=== PATIENT | female | born 1990 | race Caucasian/White ===

== ENCOUNTER → 2016-04-25 | Outpatient (CLI) | payer OTHER ==
[~2016-04-25] MED LIST: GLC/500 PO; METF1TAB85 PO; MULT-513 PO; SULF800T23 PO; TRAM-453 PO; TRAZ50TA35 PO
--- NOTE | 2016-04-25 16:48 | DIAGNOSTIC IMAGING REPORT ---
L-SPINE MIN 4 VIEWS ROUTINE CLINICAL HISTORY: Lower back pain. COMPARISON: None FINDINGS: There is mild rightward curvature of the lumbar spine. Vertebral body heights are maintained. No fracture or suspicious lesion is present. There is mild disc space narrowing at L4-L5 and L5-S1. IMPRESSION: 1. No acute lumbar spine fracture or subluxation. 2. Mild disc space narrowing at L4-L5 and L5-S1. 3. Mild rightward curvature of the lumbar spine. Electronically signed by: Silverio Garcia M.D. 04/25/2016 4:46 PM Dictated Date/Time: 04/25/2016 4:43 PM
== END | disposition home or self-care (01) ==
LOC: C.RAD1850 16:05
PROVIDERS: ATTEND Nurse Practitioner Family
DX: M54.5 Low back pain (principal); M62.830 Muscle spasm of back

== ENCOUNTER → 2016-05-08 | Outpatient (CLI) | payer OTHER ==
[2016-05-08 18:17] LABS: PROLACTIN 2.69 ng/mL
[2016-05-08 18:18] LABS: INSULIN FASTING 79.7 mU/L (3-25)
== END | disposition home or self-care (01) ==
LOC: C.LAB 16:37
PROVIDERS: ATTEND Nurse Practitioner Family
DX: E28.2 Polycystic ovarian syndrome (principal); R10.32 Left lower quadrant pain; N91.2 Amenorrhea, unspecified

== ENCOUNTER → 2016-10-04 | Outpatient (CLI) | payer OTHER | END | disposition home or self-care (01) | LOC: C.LAB 16:59 | PROVIDERS: ATTEND Family Medicine | DX: L03.90 Cellulitis, unspecified (principal) ==

== ENCOUNTER 2016-10-09 17:40 | Emergency (ER) | payer OTHER ==
[~2016-10-09] VITALS: Ht 165.1 cm; Wt 108.2 kg
[~2016-10-09 17:40] MED LIST changes: -METF1TAB85 PO; -MULT-513 PO; -SULF800T23 PO; -TRAM-453 PO; -TRAZ50TA35 PO
[2016-10-09 17:53] VITALS: TEMP 37.1; Ht 165.1 cm; Wt 108.2 kg
[2016-10-09 19:35] LABS: URINE APPEARANCE CLEAR (CLEAR); URINE BILIRUBIN NEG (NEG); URINE COLOR YELLOW; URINE NITRITE NEG (NEG); URINE PH 6.5 (4.5-7.5); URINE SPECIFIC GRAVITY 1.013 (1.000-1.030); UROBILINOGEN NEG (NEG)
[2016-10-09 19:37] LABS: MANUAL MICROSCOPIC REQUIRED? NO; REVIEW REQ? NO
[2016-10-09] MEDS ORDERED: KETOROLAC TROMETHAMINE 30 MG/ML VIAL IV STA (19:59)
--- NOTE | 2016-10-09 20:26 | EMERGENCY ROOM VISIT NOTE ---
History First contact with patient: 18:40 Chief Complaint: ABDOMINAL PAIN Stated Complaint: LOWER ABD PAIN Nursing Triage Summary: Pt referred by PCP for urinary symptoms. Pt had urine culture, neg. Pt had pelvic exam today, tender with palpation. Hx of ovarian cysts, cyst removal. pt c/o bilateral lower quadrant pain, denies urinary symptoms, denies discharge or bleeding. "I'm just achey" History of Present Illness The patient is a 26 year old female who presents to the Emergency Room with complaints of lower abdominal discomfort that has been going on for approximately 2 weeks. The patient describes it as a dull ache. She has been taking ibuprofen for the pain with minimal relief. The patient has a history of ovarian cyst. She says that this feels similar to her previous cysts. She denies any vaginal discharge. She does complain of dyspareunia. The patient has a history of PCO asked. She has not had a menstrual cycle in over 3 years. She has had to undergo surgery for her ovarian cyst in 2009. She denies any other symptoms such as fever or chills. No nausea or vomiting. No changes in bowel movements. No dysuria, however she does complain of urinary frequency. No flank pain. She is sexually active with one partner. Review of Systems 10 system review performed and negative unless noted in HPI or below Past Medical/Surgical History Medical Problems: (1) Abdominal Pain, Unspecified Site (2) Ovarian Cyst Nec/Nos (3) Tobacco Use Disorder Family History Diabetes mellitus FH: cancer FH: gallbladder disease FH: heart disease FH: lung disease Hypertension Kidney disease Kidney stones Social History Smoking Status: Current Every Day Smoker Alcohol Use: occasionally Marital Status: in relationship Housing Status: lives with family Occupation Status: student Current/Historical Medications Scheduled Metformin Hcl (Glucophage), 500 MG PO TID Multivitamins/Minerals (Mvi With Minerals), 1 TAB PO DAILY Sulfa/Trimethoprim (Bactrim Ds 800MG/160MG), 1 TAB PO BID Tramadol Hcl (Ultram), 50 MG PO Q4H Scheduled PRN Trazodone Hcl (Trazodone), 50 MG PO HS PRN for Sleep Allergies Coded Allergies: No Known Allergies (Verified , 10/09/16) Physical Exam Vital Signs Date Time Temp Pulse Resp B/P (MAP) Pulse Ox O2 Delivery O2 Flow Rate FiO2 10/09/16 21:36 76 18 143/92 97 Room Air 7/5/17 19:36 78 18 125/82 99 Room Air 10/09/16 17:53 37.1 98 18 137/87 97 Room Air Physical Exam VITALS: Vitals are noted on the nurse's note and reviewed by myself. Vital signs stable. GENERAL: 26-year-old female, in no acute distress, nondiaphoretic, well- developed well-nourished. SKIN: The skin was without rashes, erythema, edema, or bruising. HEAD: Normocephalic atraumatic. NECK: No JVD. HEART: Regular rate and rhythm without murmurs gallops or rubs. LUNGS: Clear to auscultation bilaterally without wheezes, rales or rhonchi. No accessory muscle use. ABDOMEN: Positive bowel sounds x 4.Soft tenderness to palpation in the left lower quadrant and suprapubic region.. No guarding or rebound tenderness. : External genitalia free of any lesions. Vaginal mucosa intact. No significant discharge noted. There is some narrowing of the vaginal wall noted midway to the cervix. Cervix is pink in appearance. No lesions noted. The os is closed. Bimanual exam reveals no cervical tenderness. No palpable mass on the adnexa. MUSCULOSKELETAL: No muscle atrophy, erythema, or edema noted. Full range of motion in all extremities. No tenderness to palpation. Strength 5/5 throughout. NEURO: Patient was alert and oriented to person place and time. Normal sensation to touch. No focal neurological deficits. Medical Decision & Procedures ER Provider Diagnostic Interpretation: Patient: EYAD RODRIGUEZ Address1: [address] [place] [address] Rec: [id number] [id number] Zip: [place] [id number] Date: 1990 Sex: F Room/Bed: Ref Phy: Kylah Lopez SC: MIN Att Phy: Report #: [id number] Justa Phy: Kylah Lopez Test: PVC Admit Phy: Systems Planner: ABHIJIT Interpreting Phy: Silverio Garcia MD Diagnosis: LOWER ABD PAIN Ordering Phy: Randi Andino PA-C Service Date: 10/09/16 Admit Date: 10/09/16 MNE: [id number] CONF: DICTATED BY: Silverio Garcia MD]] CC: Kylah Lopez Daniel F., M.D. Urban, Angela P., PA-C Endcc: [~ rep ct add3]] PELVIC ULTRASOUND CLINICAL HISTORY: Suprapubic/left lower quadrant pain. COMPARISON STUDY: Pelvic ultrasound and CT of the abdomen and pelvis December 26, 2013. TECHNIQUE: Transabdominal and transvaginal sonography of the pelvis was performed. FINDINGS: The uterus measures 7.8 x 3 x 4.1 cm. Endometrium measures 1.2 cm in thickness. There are 3 hypoechoic uterine lesions, including a 1.2 cm lesion which projects over the endometrium of the uterine fundus. There are 2 smaller suspected uterine fibroids. The right ovary measures 4.2 x 2.9 x 3.2 cm. There is a 2.7 cm dominant follicle or cyst within the right ovary. The left ovary measures 2.4 x 2.2 x 2.1 cm. Color flow is identified within each ovary. There is slight deformity of the left ovary which may be postsurgical. There is no free fluid. IMPRESSION: 1. Three hypoechoic uterine lesions which favor fibroids, the largest of which is a 1.2 cm submucosal fundal fibroid. 2. 2.7 cm cyst or dominant follicle within the right ovary. Electronically signed by: Silverio Garcia M.D. 10/09/2016 9:51 PM Dictated Date/Time: 10/09/2016 9:47 PM The status of this report is Signed. Draft = Not yet reviewed or approved by Radiologist. Signed = Reviewed and approved by Radiologist. Laboratory Results Test 10/09/16 00:00 10/09/16 19:10 10/09/16 19:49 Urine Color YELLOW Urine Appearance CLEAR (CLEAR) Urine pH 6.5 (4.5-7.5) Urine Specific [place] 1.013 (1.000-1.030) Urine Protein NEG (NEG) Urine Glucose (UA) NEG (NEG) Urine Ketones NEG (NEG) Urine Occult Blood NEG (NEG) Urine Nitrite NEG (NEG) Urine Bilirubin NEG (NEG) Urine Urobilinogen NEG (NEG) Urine Leukocyte Esterase NEG (NEG) Date/Time Source Procedure Growth Status 10/09/16 00:00 Cervix Swab Trichomonas Preparation - Final Complete Medications Administered Medications (Trade) Dose Ordered Sig/Christy Route Start Time Stop Time Status Last Admin Dose Admin Ketorolac Tromethamine (Toradol Inj) 30 mg NOW STAT IV 10/09/16 19:59 10/09/16 20:02 DC 10/09/16 20:06 30 MG ED Course Patient was seen and examined saline lock was established Vital signs were reviewed. BP was slightly elevated. Blood pressure was mildly elevated. The patient was made aware of this. Pelvic exam was performed Patient was given 1 dose of Toradol 30 mg IV Pelvic ultrasound was performed and reviewed. The patient was reassessed and feeling better. We discussed the results of her workup. She voiced understanding. She was comfortable being discharged home. I reviewed discharge instructions the patient. They voiced understanding and had no further questions. Medical Decision Differential diagnosis: Ovarian mass, ovarian cysts, ovarian torsion, uterine fibroids, diverticulitis, diverticulosis, appendicitis, UTI, STD, PID, vaginal dryness Patient is a 26-year-old female that presents to the emergency department with complaints of lower abdominal discomfort and dyspareunia. Her exam revealed left lower quadrant and suprapubic pain. Her pelvic examination revealed some narrowing of the vaginal canal. Otherwise, no abnormal findings noted. The patient was nontoxic in appearance. She was afebrile. Her abdomen was soft. There are no signs of peritonitis. I did not suspect a GI source. A pelvic ultrasound revealed a right ovarian cyst in addition to uterine fibroids. This could explain her symptoms. The patient was given 1 dose of Toradol with good pain relief. She was comfortable being discharged home. 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 She also agreed to return to the emergency department with any new or worsening symptoms. This chart was completed in part utilizing [employer] Speech Voice Recognition software. Attempts were made to minimize the grammatical errors, random word insertions, pronoun errors and incomplete sentences. Any formal questions or concerns about the content, text or information contained within the body of this dictation should be directly addressed to the provider for clarification. Impression Primary Impression: Uterine fibroid Additional Impression: Ovarian cyst Departure Information Prescriptions Tramadol Hcl (ULTRAM) 50 Mg Tab 50 MG PO Q4H, #15 TAB PRN PAIN Prov: Randi Andino PA-C 10/09/16 Referrals Kylah Lopez. (PCP) Patient Instructions My [facility] Problem Qualifiers
--- NOTE | 2016-10-09 21:52 | DIAGNOSTIC IMAGING REPORT ---
PELVIC ULTRASOUND CLINICAL HISTORY: Suprapubic/left lower quadrant pain. COMPARISON STUDY: Pelvic ultrasound and CT of the abdomen and pelvis December 26, 2013. TECHNIQUE: Transabdominal and transvaginal sonography of the pelvis was performed. FINDINGS: The uterus measures 7.8 x 3 x 4.1 cm. Endometrium measures 1.2 cm in thickness. There are 3 hypoechoic uterine lesions, including a 1.2 cm lesion which projects over the endometrium of the uterine fundus. There are 2 smaller suspected uterine fibroids. The right ovary measures 4.2 x 2.9 x 3.2 cm. There is a 2.7 cm dominant follicle or cyst within the right ovary. The left ovary measures 2.4 x 2.2 x 2.1 cm. Color flow is identified within each ovary. There is slight deformity of the left ovary which may be postsurgical. There is no free fluid. IMPRESSION: 1. Three hypoechoic uterine lesions which favor fibroids, the largest of which is a 1.2 cm submucosal fundal fibroid. 2. 2.7 cm cyst or dominant follicle within the right ovary. Electronically signed by: Silverio Garcia M.D. 10/09/2016 9:51 PM Dictated Date/Time: 10/09/2016 9:47 PM
[2016-10-09] MEDS ORDERED: TRAM-453 PO (22:26)
[2016-10-09 22:41] VITALS: BP 115/96; PULSE 78; O2SAT 98
[2016-10-10] MEDS ORDERED: METF1TAB85 PO (15:21)
[2016-10-10] MEDS ORDERED: SULF800T23 PO (18:16)
[2016-10-10] MEDS ORDERED: TRAZ50TA35 PO (18:16)
[2016-10-10] MEDS ORDERED: MULT-513 PO (19:34)
[2016-10-12 00:44] LABS: CHLAMYDIA TRACH RNA*** NOT DETECTED (NOT DETECTED); GC (NEIS GONORRHOEAE)RNA** NOT DETECTED (NOT DETECTED)
[2016-10-15 12:29] LABS: HERPES SIMPLEX CULT SOURCE GENITAL-CERVIX; HERPES SIMPLEX VIRUS CULT NOT ISOLATED (NOT ISOLATED)
== END 2016-10-09 22:41 | disposition home or self-care (01) ==
LOC: C.EDB 17:41 → C.EDC 22:41
DX: D25.9 Leiomyoma of uterus, unspecified (principal); N83.201 Unspecified ovarian cyst, right side; F17.200 Nicotine dependence, unspecified, uncomplicated; Z98.890 Other specified postprocedural states; Z83.3 Family history of diabetes mellitus; Z82.49 Family history of ischemic heart disease and other diseases of the circulatory system; Z84.1 Family history of disorders of kidney and ureter

== ENCOUNTER 2016-10-10 14:18 | Emergency (ER) | payer OTHER ==
[~2016-10-10] VITALS: Ht 165.1 cm; Wt 107.2 kg
[~2016-10-10 14:18] MED LIST changes: +TRAM-453 PO
[2016-10-10 14:21] VITALS: TEMP 36.9; Ht 165.1 cm; Wt 107.2 kg
[2016-10-10] MEDS ORDERED: ONDANSETRON INJ 2 MG/ML 2 ML VIAL IV STA (14:37)
[2016-10-10] MEDS ORDERED: KETOROLAC TROMETHAMINE 30 MG/ML VIAL IV STA (14:37)
[2016-10-10] MEDS ORDERED: SODIUM CHLORIDE 0.9% 1000ML 1,000 ML IV STA (14:37)
[2016-10-10] MEDS ORDERED: SODIUM CHLORIDE 0.9% 1000ML 500 ML IV STA (14:37)
[2016-10-10] MEDS ORDERED: OPTIRAY 320 IV PRN (14:45)
--- NOTE | 2016-10-10 14:54 | EMERGENCY ROOM VISIT NOTE ---
History Report prepared by Davidson: Bia Hernandez Under the Supervision of: Dr. Franky Bethea M.D. First contact with patient: 14:25 Chief Complaint: ABDOMINAL PAIN Stated Complaint: LWR ABD. PAIN-HIGH WHT CELL COUNT History of Present Illness The patient is a 26 year old female who presents to the Emergency Room with complaints of worsening diffuse abdominal pain that started 1 week ago. The patient rates her discomfort as a 8-9/10 in severity. The pain occasionally seems worse with eating too much or eating certain foods. The pain does not radiate from her abdomen. She is also experiencing nausea but denies vomiting. She also denies fevers and chills. The patient is also experiencing lower back pain but she states that it is chronic and probably secondary to how physical her job is. She states that she experienced diarrhea this morning but she thinks that was secondary to being anxious. The patient states that she saw her PCP yesterday and she ordered blood work but told the patient that if the pain worsened or if she was really concerned about an ovarian cyst to come into the ED. The patient states that she has polycystic ovarian syndrome (PCOS) and was concerned about ovarian cysts because she had a large one in the past that required surgery. The patient was evaluated in the ED yesterday and a pelvic ultrasound revealed a right ovarian cyst as well as fibroids. Her urine testing was negative. The patient states that her PCP called her 1 hour ago and told her that her white blood cell count was elevated so she needed to come into the ED to rule out appendicitis with a CT scan. The patient has a family history of appendicitis and cholecystitis. She denies any chance of . Source of History: patient Onset: 1 week ago Position: abdomen (diffuse) Quality: other (abdominal pain) Timing: worsening Modifying Factors (Worsening): eating (too much or certain foods) Associated Symptoms: + nausea, + back pain, + diarrhea, No fevers, No chills , No vomiting Review of Systems See HPI for pertinent positives & negatives. A total of 10 systems reviewed and were otherwise negative. Past Medical & Surgical Medical Problems: (1) Abdominal Pain, Unspecified Site (2) Ovarian Cyst Nec/Nos (3) Polycystic ovarian syndrome (4) Tobacco Use Disorder Family History Diabetes mellitus FH: cancer FH: gallbladder disease FH: heart disease FH: lung disease Hypertension Kidney disease Kidney stones Social History Smoking Status: Current Every Day Smoker Alcohol Use: occasionally Marital Status: in relationship Housing Status: lives with family Occupation Status: student Current/Historical Medications Scheduled Metformin Hcl (Metformin Hcl Er), 500 TAB PO TID Multivitamins/Minerals (Mvi With Minerals), 1 TAB PO DAILY Sulfa/Trimethoprim (Bactrim Ds 800MG/160MG), 1 TAB PO BID Tramadol Hcl (Ultram), 50 MG PO Q4H Scheduled PRN Trazodone Hcl (Trazodone), 50 MG PO HS PRN for Sleep Allergies Coded Allergies: No Known Allergies (Verified , 10/09/16) Physical Exam Vital Signs Date Time Temp Pulse Resp B/P (MAP) Pulse Ox O2 Delivery O2 Flow Rate FiO2 10/10/16 15:28 71 18 129/88 97 Room Air 10/10/16 14:21 36.9 98 18 124/76 94 Room Air Physical Exam GENERAL: Patient is in no acute distress. HEENT: No acute trauma, normocephalic atraumatic, mucous membranes moist, no nasal congestion, no scleral icterus. NECK: No stridor, no adenopathy, no meningismus, trachea is midline. LUNGS: Clear to auscultation bilaterally, no wheeze, no rhonchi, breath sounds equal. HEART: Without murmurs gallops or rubs, regular rate and rhythm. ABDOMEN: Soft, diffuse moderate tenderness, bowel sounds positive, no hernias, no peritonitis. EXTREMITIES: No cyanosis or edema, full range of motion of all the joints without pain or difficulty, no signs for acute trauma. NEUROLOGIC: Oriented x 3, no acute motor or sensory deficits, no focal weakness. SKIN: No rash, no jaundice, no diaphoresis. Medical Decision & Procedures ER Provider Diagnostic Interpretation: CT results as stated below per my review and radiologist interpretation: CT ABD/PELVIS IV CONTRAST ONLY FINDINGS: Lower chest: There are minimal dependent atelectatic changes. Liver: There is hepatic steatosis. No focal masses are visualized. Gallbladder: Unremarkable. Spleen: Normal in size and attenuation. Pancreas: Unremarkable. Adrenal glands: Unremarkable. Kidneys: There is symmetric renal cortical enhancement. The kidneys are normal in size without hydronephrosis. Bowel: There are no transition zones indicate bowel obstruction. There is no acute diverticulitis. The appendix appears normal. Peritoneum: There is no intraperitoneal free air or abdominal ascites. Vasculature: The abdominal aorta is normal in course and caliber. Adenopathy: None. Pelvic viscera: There is a 3 cm right ovarian cyst/follicle. Skeletal structures: No destructive osseous lesions are seen. IMPRESSION: 1. No acute intra-abdominal or pelvic findings 2. No evidence of bowel obstruction. No evidence of free air 3. Normal appendix. 4. No evidence of acute diverticulitis 5. 3 cm right ovarian cyst/follicle 6. Hepatic steatosis Electronically signed by: Prince Gilbert M.D. 10/10/2016 4:45 PM Dictated Date/Time: 10/10/2016 4:41 PM Laboratory Results 10/10/16 14:55 Red Blood Count 4.56, Mean Corpuscular Volume 93.9, Mean Corpuscular Hemoglobin 32.2, Mean Corpuscular Hemoglobin Concent 34.3, Mean Platelet Volume 9.9, Neutrophils (%) (Auto) 61.2, Lymphocytes (%) (Auto) 32.1, Monocytes (%) (Auto) 3.9, Eosinophils (%) (Auto) 2.2, Basophils (%) (Auto) 0.2, Neutrophils # (Auto) 8.66, Lymphocytes # (Auto) 4.54, Monocytes # (Auto) 0.55, Eosinophils # (Auto) 0.31, Basophils # (Auto) 0.03 10/10/16 14:55 Test 10/10/16 14:55 White Blood Count 14.14 K/uL (4.8-10.8) Red Blood Count 4.56 M/uL (4.2-5.4) Hemoglobin 14.7 g/dL (12.0-16.0) Hematocrit 42.8 % (37-47) Mean Corpuscular Volume 93.9 fL (80-100) Mean Corpuscular Hemoglobin 32.2 pg (25-34) Mean Corpuscular Hemoglobin Concent 34.3 g/dl (32-36) Platelet Count 370 K/uL (130-400) Mean Platelet Volume 9.9 fL (7.4-10.4) Neutrophils (%) (Auto) 61.2 % Lymphocytes (%) (Auto) 32.1 % Monocytes (%) (Auto) 3.9 % Eosinophils (%) (Auto) 2.2 % Basophils (%) (Auto) 0.2 % Neutrophils # (Auto) 8.66 K/uL (1.4-6.5) Lymphocytes # (Auto) 4.54 K/uL (1.2-3.4) Monocytes # (Auto) 0.55 K/uL (0.11-0.59) Eosinophils # (Auto) 0.31 K/uL (0-0.5) Basophils # (Auto) 0.03 K/uL (0-0.2) RDW Standard Deviation 43.1 fL (36.4-46.3) RDW Coefficient of Variation 12.6 % (11.5-14.5) Immature Granulocyte % (Auto) 0.4 % Immature Granulocyte # (Auto) 0.05 K/uL (0.00-0.02) Urine Color YELLOW Urine Appearance CLEAR (CLEAR) Urine pH 7.0 (4.5-7.5) Urine Specific [place] 1.019 (1.000-1.030) Urine Protein TRACE (NEG) Urine Glucose (UA) NEG (NEG) Urine Ketones NEG (NEG) Urine Occult Blood NEG (NEG) Urine Nitrite NEG (NEG) Urine Bilirubin NEG (NEG) Urine Urobilinogen NEG (NEG) Urine Leukocyte Esterase SMALL (NEG) Urine WBC (Auto) 10-30 /hpf (0-5) Urine RBC (Auto) 0-4 /hpf (0-4) Urine Hyaline Casts (Auto) 0 /lpf (0-5) Urine Epithelial Cells (Auto) >30 /lpf (0-5) Urine Bacteria (Auto) 2+ (NEG) Anion Gap 8.0 mmol/L (3-11) Est Creatinine Clear Calc Drug Dose 140.2 ml/min Estimated GFR () 129.6 Estimated GFR (Non- 111.8 BUN/Creatinine Ratio 15.1 (10-20) Calcium Level 9.5 mg/dl (8.5-10.1) Total Bilirubin 0.3 mg/dl (0.2-1) Aspartate Amino Transf (AST/SGOT) 19 U/L (15-37) Alanine Aminotransferase (ALT/SGPT) 36 U/L (12-78) Alkaline Phosphatase 68 U/L (45-117) Total Protein 7.4 gm/dl (6.4-8.2) Albumin 3.9 gm/dl (3.4-5.0) Globulin 3.5 gm/dl (2.5-4.0) Albumin/Globulin Ratio 1.1 (0.9-2) Lipase 89 U/L (73-393) Human Chorionic Gonadotropin, Qual NEG (NEG) Laboratory results reviewed by me. Medications Administered Medications (Trade) Dose Ordered Sig/Christy Route Start Time Stop Time Status Last Admin Dose Admin Sodium Chloride 500 ml @ 999 mls/hr Q31M STAT IV 10/10/16 14:37 10/10/16 15:07 DC 10/10/16 14:57 999 MLS/HR Ondansetron HCl (Zofran Inj) 4 mg NOW STAT IV 10/10/16 14:37 10/10/16 14:40 DC 10/10/16 14:58 4 MG Sodium Chloride 1,000 ml @ 200 mls/hr Q5H STAT IV 10/10/16 14:37 10/10/16 19:36 10/10/16 14:57 200 MLS/HR Ketorolac Tromethamine (Toradol Inj) 30 mg NOW STAT IV 10/10/16 14:37 10/10/16 14:40 DC 10/10/16 14:58 30 MG ED Course 1432: The patient was evaluated in room A2. A complete history and physical exam was performed. 1437: Ordered Toradol Inj, Sodium Chloride 1000 ml @ 200 mls/hr IV, Zofran Inj 4 mg IV, Sodium Chloride 500 ml @ 999 mls/hr IV 1651: Reevaluated the patient. She is doing well. Discussed results and discharge instructions: she verbalized understanding and agreement. The patient is ready for discharge. Medical Decision Differential diagnoses considered include viral illness, appendicitis, diverticulitis, biliary colic, pancreatitis, hernia, musculoskeletal pain, ovarian cyst, UTI. Medication Reconciliation: I attest that I have personally reviewed the patient' s current medication list. Blood Pressure Screening: Patient was found to have normal blood pressure on screening and does not require follow-up. There is a mild leukocytosis, this could be consistent with infection or just her pain. No concerning anemia. No significant electrolyte abnormality, kidney failure, hepatitis or pancreatitis. Urinalysis shows contamination, no obvious infection. testing is negative. Abdominal and pelvis CT shows a right ovarian cyst, no evidence for appendicitis or diverticulitis. On exam, the patient was not febrile, she was nontoxic. There was no peritonitis. The patient received IV Zofran, IV saline, IV Toradol. She seems comfortable. She is being discharged home to follow with OB. It appears that the right ovarian cyst is responsible for her pain. She was reassured. Impression Primary Impression: Right ovarian cyst Additional Impression: Leukocytosis Scribe Attestation The scribe's documentation has been prepared under my direction and personally reviewed by me in its entirety. I confirm that the note above accurately reflects all work, treatment, procedures, and medical decision making performed by me. Departure Information Dispostion Home / Self-Care Referrals No Doctor, Assigned (PCP) Forms HOME CARE DOCUMENTATION FORM, IMPORTANT VISIT INFORMATION Patient Instructions My [facility] Additional Instructions follow with ob next week for recheck of the cyst return for worsening pain or fever appendix appreared normal today by CT scan heat to the area may help motrin and or tylenol for pain Problem Qualifiers Additional Impression: Leukocytosis Leukocytosis type: unspecified Qualified Codes: D72.829 - Elevated white blood cell count, unspecified
[2016-10-10] MEDS ORDERED: METF1TAB85 PO (15:21)
[2016-10-10 15:24] LABS: BASO % 0.2 %; BASO ABS # 0.03 K/uL (0-0.2); COMPLETE YES; EOS % 2.2 %; HEMATOCRIT 42.8 % (37-47); IG% 0.4 %; LYMPH % 32.1 %; LYMPH ABS # 4.54 K/uL (1.2-3.4); MEAN CELL VOLUME 93.9 fL (80-100); MEAN CORPUSCULAR HEMOGLOBIN 32.2 pg (25-34); MEAN CORPUSCULAR HGB CONC 34.3 g/dl (32-36); MEAN PLATELET VOLUME 9.9 fL (7.4-10.4); MONO % 3.9 %; NEUT % 61.2 %; PLATELET COUNT 370 K/uL (130-400); RED BLOOD COUNT 4.56 M/uL (4.2-5.4); WHITE BLOOD COUNT 14.14 K/uL (4.8-10.8)
[2016-10-10 15:31] LABS: URINE APPEARANCE CLEAR (CLEAR); URINE BILIRUBIN NEG (NEG); URINE COLOR YELLOW; URINE EPITHELIAL CELL AUTO >30 /lpf (0-5); URINE NITRITE NEG (NEG); URINE SPECIFIC GRAVITY 1.019 (1.000-1.030); UROBILINOGEN NEG (NEG); ZZUR CULT IF INDIC CLEAN CATCH YES
[2016-10-10 15:39] LABS: MANUAL MICROSCOPIC REQUIRED? NO; REVIEW REQ? YES
[2016-10-10 15:43] LABS: BUN/CREATININE RATIO 15.1 (10-20); CALCIUM 9.5 mg/dl (8.5-10.1); CREATININE 0.74 mg/dl (0.60-1.20)
[2016-10-10 15:46] LABS: ALB/GLOB RATIO 1.1 (0.9-2)
[2016-10-10 16:04] LABS: PREG INTERNAL NEGATIVE QC NEG CLEAR BACKGROUND; PREG INTERNAL POSITIVE QC POS CONTROL LINE
--- NOTE | 2016-10-10 16:46 | DIAGNOSTIC IMAGING REPORT ---
CT ABD/PELVIS IV CONTRAST ONLY CLINICAL HISTORY: Abdominal pain. Possible appendicitis. COMPARISON STUDY: 12/26/2013 TECHNIQUE: Following the IV administration of 92 mL of Optiray-320, CT scan of the abdomen and pelvis was performed from the lung bases to the proximal femurs. Images are reviewed in the axial, sagittal, and coronal planes. IV contrast was administered without complication. CT DOSE: 981.15 mGy.cm FINDINGS: Lower chest: There are minimal dependent atelectatic changes. Liver: There is hepatic steatosis. No focal masses are visualized. Gallbladder: Unremarkable. Spleen: Normal in size and attenuation. Pancreas: Unremarkable. Adrenal glands: Unremarkable. Kidneys: There is symmetric renal cortical enhancement. The kidneys are normal in size without hydronephrosis. Bowel: There are no transition zones indicate bowel obstruction. There is no acute diverticulitis. The appendix appears normal. Peritoneum: There is no intraperitoneal free air or abdominal ascites. Vasculature: The abdominal aorta is normal in course and caliber. Adenopathy: None. Pelvic viscera: There is a 3 cm right ovarian cyst/follicle. Skeletal structures: No destructive osseous lesions are seen. IMPRESSION: 1. No acute intra-abdominal or pelvic findings 2. No evidence of bowel obstruction. No evidence of free air 3. Normal appendix. 4. No evidence of acute diverticulitis 5. 3 cm right ovarian cyst/follicle 6. Hepatic steatosis Electronically signed by: Prince Gilbert M.D. 10/10/2016 4:45 PM Dictated Date/Time: 10/10/2016 4:41 PM
[2016-10-10 17:05] VITALS: BP 121/72; PULSE 72; O2SAT 97
[2016-10-10] MEDS ORDERED: TRAZ50TA35 PO (18:16)
[2016-10-10] MEDS ORDERED: SULF800T23 PO (18:16)
[2016-10-10] MEDS ORDERED: MULT-513 PO (19:34)
== END 2016-10-10 17:05 | disposition home or self-care (01) ==
LOC: C.EDB 14:19 → C.EDA 17:05
DX: N83.201 Unspecified ovarian cyst, right side (principal); D72.829 Elevated white blood cell count, unspecified; F17.200 Nicotine dependence, unspecified, uncomplicated; Z83.3 Family history of diabetes mellitus; Z82.49 Family history of ischemic heart disease and other diseases of the circulatory system; Z84.1 Family history of disorders of kidney and ureter

== ENCOUNTER 2017-05-09 11:04 | Emergency (ER) | payer OTHER ==
[~2017-05-09] VITALS: Ht 165.1 cm; Wt 104.3 kg
[~2017-05-09 11:04] MED LIST changes: -GLC/500 PO; +METF1TAB85 PO; +MULT-513 PO; +SULF800T23 PO; -TRAM-453 PO; +TRAZ50TA35 PO
[2017-05-09 11:05] VITALS: TEMP 36.7; Ht 165.1 cm; Wt 104.3 kg
[2017-05-09] MEDS ORDERED: SODIUM CHLORIDE 0.9% 1000ML 1,000 ML IV STA (11:23)
[2017-05-09 11:55] LABS: BASO % 0.4 %; BASO ABS # 0.05 K/uL (0-0.2); EOS % 2.5 %; HEMATOCRIT 42.9 % (37-47); IG# 0.08 K/uL (0.00-0.02); LYMPH % 33.1 %; MEAN CELL VOLUME 94.7 fL (80-100); MEAN CORPUSCULAR HEMOGLOBIN 33.1 pg (25-34); MEAN PLATELET VOLUME 9.6 fL (7.4-10.4); MONO % 3.8 %; MONO ABS # 0.46 K/uL (0.11-0.59); NEUT % 59.5 %; NEUT ABS # 7.18 K/uL (1.4-6.5); PLATELET COUNT 349 K/uL (130-400); RED CELL DISTRIBUTION WIDTH CV 12.5 % (11.5-14.5); WHITE BLOOD COUNT 12.07 K/uL (4.8-10.8)
--- NOTE | 2017-05-09 11:58 | DIAGNOSTIC IMAGING REPORT ---
SINGLE VIEW CHEST CLINICAL HISTORY: Atypical chest pain. FINDINGS: An AP, portable, upright chest radiograph is compared to study dated 12/26/2013. The examination is mildly degraded by portable technique and patient rotation. The cardiomediastinal silhouette is unremarkable. There are low lung volumes with bibasilar atelectasis. The lungs and pleural spaces are otherwise clear. No pneumothorax is seen. The bony thorax is grossly intact. IMPRESSION: Low lung volumes with no active disease in the chest. Electronically signed by: Franky Juarez M.D. 05/09/2017 11:57 AM Dictated Date/Time: 05/09/2017 11:56 AM
[2017-05-09] MEDS ORDERED: AMPH10CA3 PO (12:06)
[2017-05-09 12:14] LABS: ALBUMIN 3.9 gm/dl (3.4-5.0); ALT/SGPT 48 U/L (12-78); BLOOD UREA NITROGEN 7 mg/dl (7-18); CALCIUM 8.9 mg/dl (8.5-10.1); CARBON DIOXIDE 26 mmol/L (21-32); CREATININE 0.66 mg/dl (0.60-1.20); GLUCOSE 98 mg/dl (70-99); LIPASE 96 U/L (73-393); POTASSIUM 3.7 mmol/L (3.5-5.1); SODIUM 137 mmol/L (136-145)
[2017-05-09 12:25] LABS: ALKALINE PHOSPHATASE 77 U/L (45-117); AST/SGOT 22 U/L (15-37); TOTAL PROTEIN 7.6 gm/dl (6.4-8.2)
--- NOTE | 2017-05-09 13:51 | EMERGENCY ROOM VISIT NOTE ---
History Report prepared by Davidson: John Beltran Under the Supervision of: Dr. Hugh Edge M.D. First contact with patient: 11:18 Chief Complaint: OTHER COMPLAINT Stated Complaint: REACTION TO MED History of Present Illness The patient is a 27 year old female who presents to the Emergency Room with complaints of intermittent heart palpitations beginning two weeks ago. Her heart rate has increased to 130. She also complains of chest pain, lightheadedness, and nausea. The patient was started on Adderall 10XR for ADHD two weeks ago, and feels that it is responsible for her symptoms. Her symptoms occur each morning after taking the medication. She skipped her dosage a few times last week, and did not have her symptoms those days. She denies abdominal pain, shortness of breath, vomiting, back pain, or diaphoresis. The patient is on control and metformin (for PCOS). She occasionally has intermittent hand tingling, but states that this has been present for a while. She has no history of blood clots, or thyroid disease. The patient has a history of anxiety. Source of History: patient Onset: Two weeks ago Quality: other (heart palpitations) Timing: intermittent Modifying Factors (Worsening): other (Taking Adderall) Associated Symptoms: + chest pain, + nausea, No diaphoresis, No SOB, No vomiting, No back pain Note: Additional symptoms: lightheadedness. Review of Systems See HPI for pertinent positives & negatives. A total of 10 systems reviewed and were otherwise negative. Past Medical & Surgical Medical Problems: (1) Abdominal Pain, Unspecified Site (2) ADHD (attention deficit hyperactivity disorder) (3) Anxiety (4) Cervical lymphadenopathy (5) Cervical lymphadenopathy (6) Ovarian Cyst Nec/Nos (7) Polycystic ovarian syndrome (8) RLQ abdominal pain (9) RLQ abdominal pain (10) Tobacco Use Disorder Old medical records were reviewed. Nurse's notes were reviewed and I agree with. Family History Diabetes mellitus FH: cancer FH: gallbladder disease FH: heart disease FH: lung disease Hypertension Kidney disease Kidney stones Social History Smoking Status: Current Every Day Smoker Alcohol Use: occasionally Marital Status: in relationship Housing Status: lives with family Occupation Status: student Current/Historical Medications Scheduled Amphetamine-Dextroamphetamine 10MG (Adderall Xr 10MG), 10 MG PO UD Metformin Hcl (Metformin Hcl Er), 500 TAB PO TID Multivitamins/Minerals (Mvi With Minerals), 1 TAB PO DAILY Scheduled PRN Trazodone Hcl (Trazodone), 50 MG PO HS PRN for Sleep Allergies Coded Allergies: No Known Allergies (Verified , 05/09/17) Physical Exam Vital Signs Date Time Temp Pulse Resp B/P (MAP) Pulse Ox O2 Delivery O2 Flow Rate FiO2 05/09/17 14:01 83 18 129/79 95 Room Air 05/09/17 12:36 77 18 121/80 97 Room Air 05/09/17 12:18 86 05/09/17 11:05 36.7 108 18 155/88 98 Room Air Physical Exam General: Non-ill appearing young female in no acute distress. HEENT: Normal cephalic atraumatic. Pupils are equal round and reactive to light. Extraocular movements are intact. Oropharynx is pink with moist mucous membranes. No swelling of the mouth lips or tongue. Neck: Supple with a midline trachea. No meningeal signs or stiffness, no JVD or bruits. No Stridor. Chest: Clear to auscultation bilaterally. No wheezes or rhonchi. No increased work of breathing. Heart: regular rate and rhythm. Abdomen: Soft nontender, nondistended without rebound guarding or rigidity. Extremities: No cyanosis clubbing or edema. No calf tenderness or assymetry Spine/Back. Non tender to palpation. No CVA tenderness Skin: Good turgor without rashes. Neurologic exam: Cranial nerves two through 12 are intact. Motor and sensation are intact and symmetrical throughout. Medical Decision & Procedures ER Provider Diagnostic Interpretation: Radiology results as stated below per my review and radiologist interpretation: SINGLE VIEW CHEST FINDINGS: An AP, portable, upright chest radiograph is compared to study dated 12/26/2013. The examination is mildly degraded by portable technique and patient rotation. The cardiomediastinal silhouette is unremarkable. There are low lung volumes with bibasilar atelectasis. The lungs and pleural spaces are otherwise clear. No pneumothorax is seen. The bony thorax is grossly intact. IMPRESSION: Low lung volumes with no active disease in the chest. Electronically signed by: Franky Juarez M.D. 05/09/2017 11:57 AM Laboratory Results 05/09/17 11:35 Red Blood Count 4.53, Mean Corpuscular Volume 94.7, Mean Corpuscular Hemoglobin 33.1, Mean Corpuscular Hemoglobin Concent 35.0, Mean Platelet Volume 9.6, Neutrophils (%) (Auto) 59.5, Lymphocytes (%) (Auto) 33.1, Monocytes (%) (Auto) 3.8, Eosinophils (%) (Auto) 2.5, Basophils (%) (Auto) 0.4, Neutrophils # (Auto) 7.18, Lymphocytes # (Auto) 4.00, Monocytes # (Auto) 0.46, Eosinophils # (Auto) 0.30, Basophils # (Auto) 0.05 05/09/17 11:35 Test 05/09/17 11:35 05/09/17 11:44 White Blood Count 12.07 K/uL (4.8-10.8) Red Blood Count 4.53 M/uL (4.2-5.4) Hemoglobin 15.0 g/dL (12.0-16.0) Hematocrit 42.9 % (37-47) Mean Corpuscular Volume 94.7 fL (80-100) Mean Corpuscular Hemoglobin 33.1 pg (25-34) Mean Corpuscular Hemoglobin Concent 35.0 g/dl (32-36) Platelet Count 349 K/uL (130-400) Mean Platelet Volume 9.6 fL (7.4-10.4) Neutrophils (%) (Auto) 59.5 % Lymphocytes (%) (Auto) 33.1 % Monocytes (%) (Auto) 3.8 % Eosinophils (%) (Auto) 2.5 % Basophils (%) (Auto) 0.4 % Neutrophils # (Auto) 7.18 K/uL (1.4-6.5) Lymphocytes # (Auto) 4.00 K/uL (1.2-3.4) Monocytes # (Auto) 0.46 K/uL (0.11-0.59) Eosinophils # (Auto) 0.30 K/uL (0-0.5) Basophils # (Auto) 0.05 K/uL (0-0.2) RDW Standard Deviation 43.0 fL (36.4-46.3) RDW Coefficient of Variation 12.5 % (11.5-14.5) Immature Granulocyte % (Auto) 0.7 % Immature Granulocyte # (Auto) 0.08 K/uL (0.00-0.02) D-Dimer < 190 ug/L FEU (0-500) Anion Gap 6.0 mmol/L (3-11) Est Creatinine Clear Calc Drug Dose 153.5 ml/min Estimated GFR () 140.3 Estimated GFR (Non- 121.1 BUN/Creatinine Ratio 9.9 (10-20) Calcium Level 8.9 mg/dl (8.5-10.1) Total Bilirubin 0.4 mg/dl (0.2-1) Direct Bilirubin < 0.1 mg/dl (0-0.2) Aspartate Amino Transf (AST/SGOT) 22 U/L (15-37) Alanine Aminotransferase (ALT/SGPT) 48 U/L (12-78) Alkaline Phosphatase 77 U/L (45-117) Total Protein 7.6 gm/dl (6.4-8.2) Albumin 3.9 gm/dl (3.4-5.0) Lipase 96 U/L (73-393) Thyroid Stimulating Hormone (TSH) 0.965 uIu/ml (0.300-4.500) Human Chorionic Gonadotropin, Qual NEG (NEG) Bedside Troponin I < 0.030 ng/ml (0-0.045) Laboratory studies as stated above per my review. Medications Administered Medications (Trade) Dose Ordered Sig/Christy Route Start Time Stop Time Status Last Admin Dose Admin Sodium Chloride 1,000 ml @ 999 mls/hr Q1H1M STAT IV 05/09/17 11:23 05/09/17 12:23 DC 05/09/17 11:50 999 MLS/HR ECG Indication: palpitations Rate (beats per minute): 89 Rhythm: normal sinus Findings: no acute ischemic change, no ectopy Comparison ECG Date: no prior available ED Course 1120: Past medical records reviewed. The patient was evaluated in room C6, and a complete history and physical examination were performed. 1123: Ordered Sodium Chloride 1000 ml @ 999 mls/hr IV. 1345: Upon reevaluation, the patient is resting comfortably. I discussed the results and treatment plan with her. She verbalized agreement of the treatment plan. The patient was discharged home. Medical Decision Differentials include, but are not limited to; medication side effect, anxiety, PE, cardiac disease, and electrolyte or metabolic abnormality. This patient comes in as described above. She was placed room C6. She's was started on Adderall recently has been having symptoms where she feels shaky and her heart racing at times. She looks well on exam at present. She has a normal neurologic exam and normal vital signs. she's not tachycardic here. IV access established was hydrated 1 L IV normal saline. EKG, chest x-ray and multiple blood tests was obtained. EKG does not suggest acute coronary syndrome or arrhythmia. She's had no acute electrolyte or metabolic abnormalities. Her TSH is normal and therefore unlikely this is related to her thyroid. Her d-dimer is within normal limits and in the low pretest probability study makes PE highly unlikely. She's not anemic. She's nothing to suggest cardiac disease with normal troponin. I talked at length she is feeling very comfortable like to go home. She tells me that she also just realized that she inadvertently drank caffeinated coffee this morning rather decaf and could be contributing to some of her symptoms. I encouraged her to follow up with her psychiatrist and discussed this medication further as the dosage may need to be reduced or medication change if the symptoms persist or worsen. She is encouraged to return to ER any point if symptoms worsen. She was happy with plan and discharged to home. Medication Reconcilliation Current Medication List: was personally reviewed by me Blood Pressure Screening Patient's blood pressure: Normal blood pressure Blood pressure disposition: Did not require urgent referral Impression Primary Impression: Medication side effect Additional Impression: Tachycardia Scribe Attestation The scribe's documentation has been prepared under my direction and personally reviewed by me in its entirety. I confirm that the note above accurately reflects all work, treatment, procedures, and medical decision making performed by me. Departure Information Dispostion Home / Self-Care Referrals No Doctor, Assigned (PCP) Forms HOME CARE DOCUMENTATION FORM, IMPORTANT VISIT INFORMATION, WORK / SCHOOL INSTRUCTIONS Patient Instructions [facility] [employer] Additional Instructions Rest. Drink plenty of fluids. Follow-up with your doctor and further discuss your Adderall Return to the ER if: Worsening symptoms, any new problems or concerns Problem Qualifiers
[2017-05-09 14:01] VITALS: BP 129/79; PULSE 83; O2SAT 95
== END 2017-05-09 14:07 | disposition home or self-care (01) ==
LOC: C.EDB 11:05 → C.EDC 14:07
DX: T88.7XXA Unspecified adverse effect of drug or medicament, initial encounter (principal); R00.0 Tachycardia, unspecified; X58.XXXA Exposure to other specified factors, initial encounter; F90.9 Attention-deficit hyperactivity disorder, unspecified type; E28.2 Polycystic ovarian syndrome; F17.200 Nicotine dependence, unspecified, uncomplicated; Z79.3 Long term (current) use of hormonal contraceptives; Z79.84 Long term (current) use of oral hypoglycemic drugs; Z83.3 Family history of diabetes mellitus; Z80.9 Family history of malignant neoplasm, unspecified; Z83.79 Family history of other diseases of the digestive system; Z82.49 Family history of ischemic heart disease and other diseases of the circulatory system; Z84.1 Family history of disorders of kidney and ureter

== ENCOUNTER 2017-08-12 22:24 | Emergency (ER) | payer OTHER ==
[~2017-08-12] VITALS: Ht 165.1 cm; Wt 104.6 kg
[~2017-08-12 22:24] MED LIST changes: +AMPH10CA3 PO; -SULF800T23 PO
[2017-08-12 22:30] VITALS: TEMP 37; Ht 165.1 cm; Wt 104.6 kg
[2017-08-12] MEDS ORDERED: ACETAMINOPHEN 500 MG TAB PO STA (22:57)
[2017-08-12] MEDS ORDERED: ESCI10TA17 PO (23:01)
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
[2017-08-13] MEDS ORDERED: CYCL10TA6 PO (00:32)
[2017-08-13 00:34] VITALS: BP 131/77; PULSE 75; O2SAT 97
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
== END 2017-08-13 00:34 | disposition home or self-care (01) ==
LOC: C.EDB 22:25 → C.EDC 08-13 00:34
DX: R07.9 Chest pain, unspecified (principal); V89.2XXA Person injured in unspecified motor-vehicle accident, traffic, initial encounter; F90.9 Attention-deficit hyperactivity disorder, unspecified type; F41.9 Anxiety disorder, unspecified; F17.210 Nicotine dependence, cigarettes, uncomplicated; Z83.3 Family history of diabetes mellitus; Z80.9 Family history of malignant neoplasm, unspecified; Z82.49 Family history of ischemic heart disease and other diseases of the circulatory system; Z87.442 Personal history of urinary calculi; Z79.899 Other long term (current) drug therapy

== ENCOUNTER 2018-09-10 03:08 | Inpatient (IN) ==
[2018-09-10] MEDS ORDERED: GI COCKTAIL ED USE PO ONE (03:20)
[2018-09-10] MEDS ORDERED: SODIUM CHLORIDE 0.9% 1000ML 1,000 ML IV ONE (03:20)
[2018-09-10] MEDS ORDERED: METOCLOPRAMIDE HCL INJ 5 MG/ML 2 ML VIAL IV STA (03:20)
[2018-09-10] MEDS ORDERED: KETOROLAC TROMETHAMINE 15 MG/ML VIAL IV STA (03:20)
--- NOTE | 2018-09-10 03:24 | Emergency Department Note ---
History of Present Illness General Chief complaint: Abdominal Pain Stated complaint: ADB PAIN History of Present Illness Maximum Pain Intensity: 9 This 28-year-old presents to the ER complaining of epigastric discomfort Location: Epigastric Quality: Painful Severity: Moderate Duration: Tonight Timing: Woke her from sleep Context: Pain persisted and patient came in Modifying factors: better with rest; worse with palpation Patient denies chest pain, dyspnea, vomiting, back pain, urinary symptoms, diarrhea, fever, flulike illness. Her and her both had a ham sandwichs last night for dinner. No history of similar symptoms. Home Medications Home Medications Medication Instructions Recorded Confirmed Type cholecalciferol (vitamin D3) 1,000 unit PO DAILY 07/14/18 09/10/18 History [Vitamin D3] coQ10 (ubiquinol) 200 mg PO Q2D 07/14/18 09/10/18 History fluoxetine 20 mg PO QAM 07/14/18 09/10/18 History magnesium citrate 200 mg PO Q2D 07/14/18 09/10/18 History melatonin 3 mg PO HS PRN 07/14/18 09/10/18 History multivitamin with minerals 1 tab PO DAILY 07/14/18 09/10/18 History vitamin B complex 1 tab PO DAILY 07/14/18 09/10/18 History amoxicillin-pot clavulanate 1 tab PO BID 10 Days #20 tab 09/10/18 Rx [Augmentin] Allergies Allergy/AdvReac Type Severity Reaction Status Date / Time No Known Allergies Allergy Verified 09/10/18 03:47 Past Med/Surg History Medical History Anxiety (Chronic) Polycystic ovarian syndrome (Chronic) UNSURE ? 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 Surgical History History of tooth extraction Ovarian cyst REMOVED SURGICALLY Family History Grandfather (Maternal) Family history of diabetes mellitus Grandfather (Paternal) Family history of diabetes mellitus Sister Family history of diabetes mellitus Social History Preferred Language: Trinidadian Communication Ability: Effective Beliefs That Will Affect Care: None Current Living Situation: Family Feels Safe at Home: Yes Smoking Status: Never smoker Tobacco Type: cigarettes Cigarettes Per Day: 10-15 DAILY Second Hand Exposure: Yes Hx Alcohol Use: Yes Alcohol type: beer and wine Hx Substance Use: No Review of Systems A total of 10 systems reviewed and were otherwise negative Physical Exam Vital Signs Vital Signs - 24 hr 09/10/18 03:12 09/10/18 04:26 Temperature 36.5 C Temperature Source Oral Sepsis Recent Fever Within 48 Hours No Sepsis New/Unexplained Change in Mental Status No Sepsis Action Taken by Nursing No Action Required Pulse Rate 77 Pulse Rate [Right Finger] 75 Respiratory Rate 16 18 Respiratory Effort / Characteristics Non-Labored Spontaneous Respiratory Depth Normal Blood Pressure 148/97 H Blood Pressure [Right Arm] 101/53 L Blood Pressure Mean 114 Blood Pressure Mean [Right Arm] 69 Pulse Oximetry 98 98 Oxygen Delivery Method Room Air VITALS: Vitals are noted on the nurse's note and reviewed by myself. Vital signs stable. GENERAL: White female ambulating without difficulties, in no acute distress, nondiaphoretic, well-developed well-nourished. SKIN: Capillary reflex less than 2 seconds. HEENT: Normocephalic. PERRLA. EOMI. Nares patent. Mucous membranes moist. Neck is supple without nuchal rigidity. HEART: Regular rate and rhythm without murmurs gallops or rubs. LUNGS: Clear to auscultation bilaterally without wheezes, rales or rhonchi. No retractions or accessory muscle use. ABDOMEN: Positive bowel sounds x 4. Normal tympanic percussion. Soft, tender to palpation epigastric right upper quadrant, without masses or organomegaly. No CVA tenderness. no guarding or rebound tenderness. MUSCULOSKELETAL: No gross musculoskeletal defects. NEURO: Patient was alert and oriented to person place and time. Normal sensation to light and sharp touch. No focal neurological deficits. Course Administered Medications Discontinued Medications Al Hydrox/Mg Hydrox/Simethicone () 1 dose PO ONE ONE Stop: 09/10/18 03:21 Last Admin: 09/10/18 03:35 Dose: 1 dose Documented by: [id number] Sodium Chloride (Nss 1000ml) 1,000 mls @ 999 mls/hr IV .Q1H1M ONE Stop: 09/10/18 04:20 Last Infusion: 09/10/18 04:39 Dose: 0 mls/hr Documented by: [id number] Admin: 09/10/18 03:35 Dose: 999 mls/hr Documented by: [id number] Ketorolac Tromethamine (Toradol) 10 mg IV NOW STA Stop: 09/10/18 03:21 Last Admin: 09/10/18 03:35 Dose: 10 mg Documented by: [id number] Metoclopramide HCl (Reglan) 10 mg IV NOW STA Stop: 09/10/18 03:21 Last Admin: 09/10/18 03:35 Dose: 10 mg Documented by: [id number] Medical Decision Making Medical Records Attestation: I reviewed the patient's medical records. Home Medications Current Medication List: was personally reviewed by me Laboratory Data Attestation: I reviewed the patient's lab results. Result diagrams: 09/10/18 03:25 09/10/18 03:25 Lab Results 09/10/18 09/10/18 09/10/18 Range/Units 03:25 03:25 Unknown WBC 12.95 H (4.8-10.8) K/uL RBC 4.58 (4.2-5.4) M/uL Hgb 15.4 (12.0-16.0) g/dL Hct 43.0 (37-47) % MCV 93.9 (80-100) fL MCH 33.6 (25-34) pg MCHC 35.8 (32-36) g/dL RDW Std Deviation 43.7 (36.4-46.3) fL RDW Coeff of Jimenez 12.8 (11.5-14.5) % Plt Count 365 (130-400) K/uL MPV 9.5 (7.4-10.4) fL Immature Gran % (Auto) 0.3 % Neut % (Auto) 43.9 % Lymph % (Auto) 47.4 % Ness % (Auto) 4.8 % Eos % (Auto) 3.2 % Baso % (Auto) 0.4 % Immature Gran # (Auto) 0.04 H (0.00-0.02) K/uL Neut # (Auto) 5.69 (1.4-6.5) K/uL Lymph # (Auto) 6.14 H (1.2-3.4) K/uL Ness # (Auto) 0.62 H (0.11-0.59) K/uL Eos # (Auto) 0.41 (0-0.5) K/uL Baso # (Auto) 0.05 (0-0.2) K/uL Sodium 138 (136-145) mmol/L Potassium 3.9 (3.5-5.1) mmol/L Chloride 108 H (98-107) mmol/L Carbon Dioxide 26 (21-32) mmol/L Anion Gap 4.0 (3-11) BUN 11 (7-18) mg/dl Creatinine 0.62 (0.6-1.2) mg/dl Est Cr Clr Drug Dosing 154.6 ml/min Est GFR ( Amer) 142.2 Est GFR (Non-Af Amer) 122.7 BUN/Creatinine Ratio 18.1 (10-20) Glucose 117 H (70-99) mg/dl Calcium 10.0 (8.5-10.1) mg/dl Total Bilirubin 0.3 (0.2-1) mg/dl AST 16 (15-37) U/L ALT 38 (12-78) U/L Alkaline Phosphatase 72 (45-117) U/L Total Protein 7.4 (6.4-8.2) gm/dl Albumin 3.8 (3.4-5.0) gm/dl Globulin 3.6 (2.5-4.0) gm/dl Albumin/Globulin Ratio 1.1 (0.9-2) Lipase 92 (73-393) U/L Urine Color Urine Appearance (Clear) Urine pH (4.5-7.5) Ur Specific Rawlings (1.000-1.030) Urine Protein (Negative) Urine Glucose (UA) (Negative) Urine Ketones (Negative) Urine Blood (Negative) Urine Nitrite (Negative) Urine Bilirubin (Negative) Urine Urobilinogen (Negative) Ur Leukocyte Esterase (Negative) Urine RBC (0-4) /hpf Urine WBC (0-5) /hpf Ur Epithelial Cells (0-5) /lpf Urine Bacteria (Negative) POC Ur Test NEG (NEG) 09/10/18 Range/Units Unknown WBC (4.8-10.8) K/uL RBC (4.2-5.4) M/uL Hgb (12.0-16.0) g/dL Hct (37-47) % MCV (80-100) fL MCH (25-34) pg MCHC (32-36) g/dL RDW Std Deviation (36.4-46.3) fL RDW Coeff of Jimenez (11.5-14.5) % Plt Count (130-400) K/uL MPV (7.4-10.4) fL Immature Gran % (Auto) % Neut % (Auto) % Lymph % (Auto) % Ness % (Auto) % Eos % (Auto) % Baso % (Auto) % Immature Gran # (Auto) (0.00-0.02) K/uL Neut # (Auto) (1.4-6.5) K/uL Lymph # (Auto) (1.2-3.4) K/uL Ness # (Auto) (0.11-0.59) K/uL Eos # (Auto) (0-0.5) K/uL Baso # (Auto) (0-0.2) K/uL Sodium (136-145) mmol/L Potassium (3.5-5.1) mmol/L Chloride (98-107) mmol/L Carbon Dioxide (21-32) mmol/L Anion Gap (3-11) BUN (7-18) mg/dl Creatinine (0.6-1.2) mg/dl Est Cr Clr Drug Dosing ml/min Est GFR ( Amer) Est GFR (Non-Af Amer) BUN/Creatinine Ratio (10-20) Glucose (70-99) mg/dl Calcium (8.5-10.1) mg/dl Total Bilirubin (0.2-1) mg/dl AST (15-37) U/L ALT (12-78) U/L Alkaline Phosphatase (45-117) U/L Total Protein (6.4-8.2) gm/dl Albumin (3.4-5.0) gm/dl Globulin (2.5-4.0) gm/dl Albumin/Globulin Ratio (0.9-2) Lipase (73-393) U/L Urine Color Yellow Urine Appearance Clear (Clear) Urine pH 5.5 (4.5-7.5) Ur Specific Rawlings 1.022 (1.000-1.030) Urine Protein 1+ H (Negative) Urine Glucose (UA) Negative (Negative) Urine Ketones Negative (Negative) Urine Blood Negative (Negative) Urine Nitrite Negative (Negative) Urine Bilirubin Negative (Negative) Urine Urobilinogen Negative (Negative) Ur Leukocyte Esterase Negative (Negative) Urine RBC 0-4 (0-4) /hpf Urine WBC 0-5 (0-5) /hpf Ur Epithelial Cells 20-30 H (0-5) /lpf Urine Bacteria Negative (Negative) POC Ur Test (NEG) Imaging Data Attestation: I personally reviewed and interpreted this imaging study as follows: MDM Narrative Prior records/ancillary studies reviewed. Triage Nursing notes reviewed. Additional history obtained from family. The patient's history was concerning for abdominal pain. Differential diagnosis: Etiologies such as appendicitis, diverticulitis, PUD, biliary pathology, UTI, pancreatitis, obstruction, mesenteric ischemia, aortic pathology, infections, inflammatory bowel disease, renal colic, as well as others were entertained. Physical examination findings: As above. ER treatment provided: GI cocktail, Reglan, Toradol, IV fluids On reassessment the patient felt better. Diagnostics interpreted by me: The labs revealed mild leukocytosis. Negative hCG Imaging: US RUQ: Visualized portions of the pancreas are unremarkable. Visualized portions of the IVC are unremarkable. Enlarged liver, measuring 21.8 cm. Increased echogenicity is compatible with hepatic steatosis. Patent main portal vein with normal direction of flow. Nonmobile stone in the gallbladder neck measuring 1.2 cm. Mildly distended gallbladder. Pericholecystic fluid versus focal fatty sparing along the gallbladder fossa. No gallbladder wall thickening. Sonographic Moran sign could not be assessed due to patient receiving pain meds. Acute cholecystitis is not excluded. Normal common bile duct measuring 3.4 mm. No hydronephrosis of the right kidney. No ascites. Radiologist: Chad Callejas M.D. Consultation: A consultation was placed with the surgeon, Dr. Kitchen. The case was discussed and diagnostics were reviewed. The patient was admitted to her service. She was placed n.p.o. and given antibiotics. Exam and history seem consistent with biliary colic concerning for possible acute cholecystitis. Surgery was consulted. They were admitted to their service. Patient was placed n.p.o. and started antibiotics. Patient is agreeable treatment plan. By the evaluation outlined above emergent etiologies such as appendicitis, diverticulitis, PUD, UTI, pancreatitis, obstruction, mesenteric ischemia, aortic pathology, inflammatory bowel disease, renal colic, as well as others were deemed relatively unlikely. The pt informed about the findings as listed above. All questions were answered and pleased with the treatment. Case reviewed with my attending The chart was completed utilizing [employer] Speech voice recognition software. Grammatical errors, random word insertions, pronoun errors, and incomplete sentences are an occassional consequence of this system due to software limitations, ambient noise, and hardware issues. Any formal questions or concerns about the content, text, or information contained within the body of this dictation should be directly addressed to the physician specimen preparation assistant for clarification. Impression & Plan Biliary colic, Abdominal pain Discharge Plan Visit Data Chief Complaint: Abdominal Pain Stated Complaint: ADB PAIN ED Provider: Carmen Basilio ED Midlevel Provider: Suzi Brooks Discharge Problem: Biliary colic, Abdominal pain Patient Disposition: Being Evaluated by Surgeon Condition: Good Discharge Instructions Activity Restrictions/Additional Instructions: Forms Stand Alone Forms: Important Visit Information Prescriptions Prescriptions: New amoxicillin-pot clavulanate [Augmentin] 875-125 mg tablet 1 tab PO BID 10 Days Qty: 20 RF: 0 No Action melatonin 3 mg Tablet 3 mg PO HS PRN (Reason: Sleep) RF: 0 fluoxetine 20 mg Tablet 20 mg PO QAM RF: 0 vitamin B complex Tablet 1 tab PO DAILY RF: 0 multivitamin with minerals Tablet 1 tab PO DAILY RF: 0 cholecalciferol (vitamin D3) [Vitamin D3] 1,000 unit Tablet 1,000 unit PO DAILY RF: 0 coQ10 (ubiquinol) 200 mg Capsule 200 mg PO Q2D RF: 0 magnesium citrate 100 mg Tablet 200 mg PO Q2D RF: 0 Referrals Referrals: Bethany Zhao [Primary Care Provider] -
[2018-09-10 03:32] LABS: Hemoglobin 15.4 g/dL (12.0-16.0); Mean Corpuscular Hgb Conc 35.8 g/dL (32-36); Mean Corpuscular Volume 93.9 fL (80-100); Mean Platelet Volume 9.5 fL (7.4-10.4); Platelet Count 365 K/uL (130-400); RDW Coefficient of Variation 12.8 % (11.5-14.5); RDW Standard Deviation 43.7 fL (36.4-46.3); Red Blood Count 4.58 M/uL (4.2-5.4); White Blood Count 12.95 K/uL (4.8-10.8)
[2018-09-10 03:52] LABS: Basophils # (auto) 0.05 K/uL (0-0.2); Basophils % (auto) 0.4 %; Eosinophils # (auto) 0.41 K/uL (0-0.5); Eosinophils % (auto) 3.2 %; Immature Granulocytes # (auto) 0.04 K/uL (0.00-0.02); Immature Granulocytes % (auto) 0.3 %; Lymphocytes # (auto) 6.14 K/uL (1.2-3.4); Lymphocytes % (auto) 47.4 %; Monocytes # (auto) 0.62 K/uL (0.11-0.59); Monocytes % (auto) 4.8 %; Neutrophils # (auto) 5.69 K/uL (1.4-6.5); Neutrophils % (auto) 43.9 %
[2018-09-10 03:53] LABS: Albumin Level 3.8 gm/dl (3.4-5.0); BUN Creatinine Ratio 18.1 (10-20); Creatinine Clr Calc Pharmacy 154.6 ml/min; Est GFR (African American) 142.2; Est GFR (Non-African American) 122.7; Potassium 3.9 mmol/L (3.5-5.1)
[2018-09-10 03:56] LABS: Albumin Globulin Ratio 1.1 (0.9-2); Bilirubin,Total 0.3 mg/dl (0.2-1); Globulin 3.6 gm/dl (2.5-4.0); Total Protein 7.4 gm/dl (6.4-8.2)
[2018-09-10 04:31] LABS: Appearance Urine Clear (Clear); Bilirubin Urine Negative (Negative); Blood Urine Negative (Negative); Color Urine Yellow; Glucose Urine UA Negative (Negative); Ketones Urine Negative (Negative); Leukocyte Esterase Urine Negative (Negative); Nitrite Urine Negative (Negative); Protein Urine 1+ (Negative); Specific Gravity Urine 1.022 (1.000-1.030); Urobilinogen Urine Negative (Negative); pH Urine 5.5 (4.5-7.5)
[2018-09-10 04:41] LABS: Epithelial Cell Urine 20-30 /lpf (0-5)
[2018-09-10 04:42] LABS: Bacteria Urine Negative (Negative); RBC Urine 0-4 /hpf (0-4); WBC Urine 0-5 /hpf (0-5)
[2018-09-10] MEDS ORDERED: ONDANSETRON INJ 2 MG/ML 2 ML VIAL IV PRN (04:58)
[2018-09-10] MEDS ORDERED: ACETAMINOPHEN 325 MG TAB PO PRN (04:58)
[2018-09-10] MEDS ORDERED: OXYCODONE HCL IR 5 MG TAB (IMMEDIATE RELEASE) PO PRN (05:03)
[2018-09-10] MEDS: cefOXitin 2,000 MG/60 ML BAG IV STA ×2 (05:18→07:40)
[2018-09-10] MEDS: SODIUM CHLORIDE 0.9% 1000ML 1,000 ML IV SCH ×2 (05:46→16:08)
[2018-09-10] MEDS: HYDROmorphone INJ 1 MG/ML SYRINGE IV PRN (05:54)
--- NOTE | 2018-09-10 06:45 | Ultrasound Report ---
US gallbladder HISTORY: 28 years-old Female ruq pain acute right upper quadrant abdominal pain with nausea COMPARISON: CT abdomen and pelvis 10/10/2016 TECHNIQUE: Multiple real-time sonographic images of the abdominal right upper quadrant were obtained assessing grayscale appearance and color flow. FINDINGS: Pancreas is obscured by bowel gas. Hepatomegaly with increased echogenicity of the liver suggestive o f hepatic steatosis. No focal hepatic mass lesion, cirrhosis or intrahepatic biliary ductal dilation. There is fatty sparing adjacent to the jasmin hepatis. Equivocal pericholecystic edema. Gallbladder w all is normal in diameter, 1.5 cm. Nonmobile stone about the gallbladder neck measures 1.2 cm. No sig nificant gallbladder distention. Sonographic Moran sign was unable to be assessed secondary to patie nt receiving recent pain medication. Common bile duct is normal, 3 mm. Imaged right kidney is unremarkable without hydronephrosis. IMPRESSION: 1. Nonmobile cholelithiasis about the gallbladder neck with equivocal pericholecystic edema. No assoc iated gallbladder wall thickening and the sonographic Moran sign was unable to be assessed secondary to patient receiving recent pain medication. These findings could be correlated with nuclear medicin e hepatobiliary scan to exclude acute cholecystitis. 2. No biliary ductal dilation. 3. Hepatomegaly with hepatic steatosis. The above report was generated using voice recognition software. It may contain grammatical, syntax o r spelling errors. Electronically signed by: Vinnie Bentley M.D. 09/10/2018 6:44 AM
--- NOTE | 2018-09-10 08:25 | History & Physical Report ---
Date of Service September 10, 2018 Assessment & Plan (1) Symptomatic cholelithiasis: 28 year-old presented to emergency department with epigastric pain with radiation to left upper abdomen that woke her up at 2 am this morning with associated nausea, sweats, and back pain (chronic). Denies of any fever or chills. Ultrasound showing 1.2 cm gallstone in neck of gallbladder. Mild leukocytosis of12K. T. bili and LFTS wnl. Recent history of indigestion with fatty foods and lying flat with increased usage of NSAIDs for her chronic back pain. Differential: symptomatic cholelithiasis, mild acute calculous cholecystitis, gastritis vs PUD Plan: Given symptomatic cholelithiasis cholecystectomy is indicated to prevent further episodes of pain or worse infection and/or obstruction. Dr. Emanuel discussed with patient the option of inpatient vs outpatient cholecystectomy as well as risks of procedure and benefits. Risks including bleeding, infection, scarring, injury to surrounding organs/tissues, bile duct injury, bile leak, hernia, cardiopulmonary complications including heart attack, stroke, blood clots or even . If patient were to decide on elective surgery, would recommend course of antibiotics on discharge. Discussed recovery time and restrictions undergoing cholecystectomy. Also discussed possible differential of gastritis vs PUD given recent indigestion symptoms although believe her symptoms are more likely from her large gallstone. Will consult GI to evaluate patient and discuss possible EGD. Keep patient NPO for now Continue IV fluids continue IV Cefoxitin Continue IV Zofran prn nausea Continue IV Dilaudid and PO Oxycodone prn pain await GI recs/patient decision Dr. Emanuel has seen and examined patient, agrees with above plan. Please see addendum for further recommendations/plan. History of Present Illness Chief Complaint: Epigastric abdominal pain with nausea Primary Care Provider: Bethany H. Pavel Garcia is a pleasant 28 year-old female who presented to emergency room with complaint of sudden epigastric pain that woke her up at 2 am with radiation to the left upper abdomen. States the pain felt like she was punched in the belly. Pain seemed to go somewhat to her back but denies of pain between her shoulder blades. States she has chronic low back pain that has been persistent that she has been taking NSAIDs more frequently for but not on a daily basis. States she also has noticed increased digestion in the past few weeks, after eating fatty foods and also notices when lying down flat. Has no prior history of gallbladder issues or GERD. Does not take any antacid medications. She states she had some sweating and nausea with the pain and felt like she had to vomit but did not. Denies of any diarrhea, constipation, blood in stools, difficulty urinating, or blood in urine. Denies of any chest pain, shortness of breath, or difficulty breathing. She does have history of PVCs and PACs. Recently just had a Holter monitor which was normal. 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 States her entire family has had gallbladders removed including mother and all three of her siblings. Emergency room work-up included labs which showed leukocytosis of 12K. T. bili, LFTs, lipase wnl. Ultrasound showing 1.2 cm gallstone in neck of gallbladder with pericholecystic fluid however gallbladder wall within normal limits. Allergies Allergy/AdvReac Type Severity Reaction Status Date / Time No Known Allergies Allergy Verified 09/10/18 03:47 Home Medications Home Medications Medication Instructions Recorded Confirmed Type cholecalciferol (vitamin D3) 1,000 unit PO DAILY 07/14/18 09/10/18 History [Vitamin D3] coQ10 (ubiquinol) 200 mg PO Q2D 07/14/18 09/10/18 History fluoxetine 20 mg PO QAM 07/14/18 09/10/18 History magnesium citrate 200 mg PO Q2D 07/14/18 09/10/18 History melatonin 3 mg PO HS PRN 07/14/18 09/10/18 History multivitamin with minerals 1 tab PO DAILY 07/14/18 09/10/18 History vitamin B complex 1 tab PO DAILY 07/14/18 09/10/18 History amoxicillin-pot clavulanate 1 tab PO BID 10 Days #20 tab 09/10/18 Rx [Augmentin] Past Med/Surg History Medical History Anxiety (Chronic) Polycystic ovarian syndrome (Chronic) UNSURE ? 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 Surgical History History of tooth extraction Ovarian cyst REMOVED SURGICALLY Family History Grandfather (Maternal) Family history of diabetes mellitus Grandfather (Paternal) Family history of diabetes mellitus Sister Family history of diabetes mellitus Social History Preferred Language: Faroese Communication Ability: Effective Forms Examiner Required: No Beliefs That Will Affect Care: None Current Living Situation: Spouse Other Information That Helps Us Care for You: No Feels Safe at Home: Yes Safety Concerns: Feels Safe At This Time Smoking Status: Current every day smoker Tobacco Type: cigarettes Cigarettes Per Day: 10 Do You Dip or Chew Tobacco: No Second Hand Exposure: No Tobacco Cessation Education Requested by Patient: No Hx Alcohol Use: No Hx Substance Use: No Review of Systems Review of Systems: All systems reviewed & are unremarkable except as noted in HPI & below Physical Exam Constitutional: WD/WN, vitals as above no acute distress and not ill appearing Respiratory: normal respiratory effort, lungs clear to auscultation no respiratory distress Cardiovascular: RRR, no murmur, no edema Gastrointestinal (Abdomen): Inspection/Auscultation: abdomen normal to inspection; abdomen not distended Percussion/Palpation: + abdomen tender (RUQ ) and abdomen soft; no guarding and abdomen not rigid Skin: no rashes, warm and dry Psychiatric: A+Ox3, euthymic affect Results & Data Vital Signs (Past 12 Hours) Vital Signs Temp Pulse Pulse Resp BP BP Pulse Ox 09/10/18 07:45 36.5 C 63 16 117/80 94 09/10/18 07:20 67 16 115/71 94 09/10/18 06:40 67 18 115/71 94 09/10/18 05:54 70 18 130/88 95 09/10/18 04:26 75 18 101/53 L 98 09/10/18 03:12 36.5 C 77 16 148/97 H 98 Pulse Ox 09/10/18 07:45 94 09/10/18 07:20 09/10/18 06:40 09/10/18 05:54 09/10/18 04:26 06/06/19 03:12 Laboratory Results 09/10/18 09/10/18 09/10/18 Range/Units Unknown Unknown 03:25 WBC (4.8-10.8) K/uL RBC (4.2-5.4) M/uL Hgb (12.0-16.0) g/dL Hct (37-47) % MCV (80-100) fL MCH (25-34) pg MCHC (32-36) g/dL RDW Std Deviation (36.4-46.3) fL RDW Coeff of Jimenez (11.5-14.5) % Plt Count (130-400) K/uL MPV (7.4-10.4) fL Immature Gran % (Auto) % Neut % (Auto) % Lymph % (Auto) % Miller % (Auto) % Eos % (Auto) % Baso % (Auto) % Immature Gran # (Auto) (0.00-0.02) K/uL Neut # (Auto) (1.4-6.5) K/uL Lymph # (Auto) (1.2-3.4) K/uL Miller # (Auto) (0.11-0.59) K/uL Eos # (Auto) (0-0.5) K/uL Baso # (Auto) (0-0.2) K/uL Sodium 138 (136-145) mmol/L Potassium 3.9 (3.5-5.1) mmol/L Chloride 108 H (98-107) mmol/L Carbon Dioxide 26 (21-32) mmol/L Anion Gap 4.0 (3-11) BUN 11 (7-18) mg/dl Creatinine 0.62 (0.6-1.2) mg/dl Est Cr Clr Drug Dosing 154.6 ml/min Est GFR ( Amer) 142.2 Est GFR (Non-Af Amer) 122.7 BUN/Creatinine Ratio 18.1 (10-20) Glucose 117 H (70-99) mg/dl Calcium 10.0 (8.5-10.1) mg/dl Total Bilirubin 0.3 (0.2-1) mg/dl AST 16 (15-37) U/L ALT 38 (12-78) U/L Alkaline Phosphatase 72 (45-117) U/L Total Protein 7.4 (6.4-8.2) gm/dl Albumin 3.8 (3.4-5.0) gm/dl Globulin 3.6 (2.5-4.0) gm/dl Albumin/Globulin Ratio 1.1 (0.9-2) Lipase 92 (73-393) U/L Urine Color Yellow Urine Appearance Clear (Clear) Urine pH 5.5 (4.5-7.5) Ur Specific [place] 1.022 (1.000-1.030) Urine Protein 1+ H (Negative) Urine Glucose (UA) Negative (Negative) Urine Ketones Negative (Negative) Urine Blood Negative (Negative) Urine Nitrite Negative (Negative) Urine Bilirubin Negative (Negative) Urine Urobilinogen Negative (Negative) Ur Leukocyte Esterase Negative (Negative) Urine RBC 0-4 (0-4) /hpf Urine WBC 0-5 (0-5) /hpf Ur Epithelial Cells 20-30 H (0-5) /lpf Urine Bacteria Negative (Negative) POC Ur Test NEG (NEG) 09/10/18 Range/Units 03:25 WBC 12.95 H (4.8-10.8) K/uL RBC 4.58 (4.2-5.4) M/uL Hgb 15.4 (12.0-16.0) g/dL Hct 43.0 (37-47) % MCV 93.9 (80-100) fL MCH 33.6 (25-34) pg MCHC 35.8 (32-36) g/dL RDW Std Deviation 43.7 (36.4-46.3) fL RDW Coeff of Jimenez 12.8 (11.5-14.5) % Plt Count 365 (130-400) K/uL MPV 9.5 (7.4-10.4) fL Immature Gran % (Auto) 0.3 % Neut % (Auto) 43.9 % Lymph % (Auto) 47.4 % Miller % (Auto) 4.8 % Eos % (Auto) 3.2 % Baso % (Auto) 0.4 % Immature Gran # (Auto) 0.04 H (0.00-0.02) K/uL Neut # (Auto) 5.69 (1.4-6.5) K/uL Lymph # (Auto) 6.14 H (1.2-3.4) K/uL Miller # (Auto) 0.62 H (0.11-0.59) K/uL Eos # (Auto) 0.41 (0-0.5) K/uL Baso # (Auto) 0.05 (0-0.2) K/uL Sodium (136-145) mmol/L Potassium (3.5-5.1) mmol/L Chloride (98-107) mmol/L Carbon Dioxide (21-32) mmol/L Anion Gap (3-11) BUN (7-18) mg/dl Creatinine (0.6-1.2) mg/dl Est Cr Clr Drug Dosing ml/min Est GFR ( Amer) Est GFR (Non-Af Amer) BUN/Creatinine Ratio (10-20) Glucose (70-99) mg/dl Calcium (8.5-10.1) mg/dl Total Bilirubin (0.2-1) mg/dl AST (15-37) U/L ALT (12-78) U/L Alkaline Phosphatase (45-117) U/L Total Protein (6.4-8.2) gm/dl Albumin (3.4-5.0) gm/dl Globulin (2.5-4.0) gm/dl Albumin/Globulin Ratio (0.9-2) Lipase (73-393) U/L Urine Color Urine Appearance (Clear) Urine pH (4.5-7.5) Ur Specific [place] (1.000-1.030) Urine Protein (Negative) Urine Glucose (UA) (Negative) Urine Ketones (Negative) Urine Blood (Negative) Urine Nitrite (Negative) Urine Bilirubin (Negative) Urine Urobilinogen (Negative) Ur Leukocyte Esterase (Negative) Urine RBC (0-4) /hpf Urine WBC (0-5) /hpf Ur Epithelial Cells (0-5) /lpf Urine Bacteria (Negative) POC Ur Test (NEG) Diagnostic Findings US gallbladder HISTORY: 28 years-old Female ruq pain acute right upper quadrant abdominal pain with nausea COMPARISON: CT abdomen and pelvis 10/10/2016 TECHNIQUE: Multiple real-time sonographic images of the abdominal right upper quadrant were obtained assessing grayscale appearance and color flow. FINDINGS: Pancreas is obscured by bowel gas. Hepatomegaly with increased echogenicity of the liver suggestive of hepatic steatosis. No focal hepatic mass lesion, cirrhosis or intrahepatic biliary ductal dilation. There is fatty sparing adjacent to the jasmin hepatis. Equivocal pericholecystic edema. Gallbladder wall is normal in diameter, 1.5 cm. Nonmobile stone about the gallbladder neck measures 1.2 cm. No significant gallbladder distention. Sonographic Moran sign was unable to be assessed secondary to patient receiving recent pain medication. Common bile duct is normal, 3 mm. Imaged right kidney is unremarkable without hydronephrosis. IMPRESSION: 1. Nonmobile cholelithiasis about the gallbladder neck with equivocal pericholecystic edema. No associated gallbladder wall thickening and the sonographic Moran sign was unable to be assessed secondary to patient receiving recent pain medication. These findings could be correlated with nuclear medicine hepatobiliary scan to exclude acute cholecystitis. 2. No biliary ductal dilation. 3. Hepatomegaly with hepatic steatosis. Code Status & VTE Plan VTE Prophylaxis Plan VTE Prophylaxis will be ordered: Yes Supervising Physician Co-Signing Physician Notes I have seen and evaluated the patient and reviewed the medical record. I agree with the documentation as provided in this note by Suzi Baum PA-C. The patient's symptoms are most likely secondary to symptomatic cholelithiasis as pain is worse after meals, especially fatty meals, and the size and location of the gallstone. She did have a slightly elevated WBC, but this is chronic. She has been taking an increased amount of NSAIDs and symptoms are worse after lying down so differential includes reflux disease as well. Discussed with the pt treatment options, including observation, proceeding with cholecystectomy, and evaluation by GI first to assess for GERD/esophagitis/gastritis. Prior to proceeding with surgery GI has been consulted to discuss potential EGD with the patient.
[2018-09-10] MEDS: FLUOXETINE HCL 20 MG CAP PO SCH (09:29)
--- NOTE | 2018-09-10 10:45 | Gastrointestinal Consultation ---
Date of Consultation September 10, 2018 Assessment & Plan (1) RUQ abdominal tenderness: (2) Abnormal ultrasound of gallbladder: 1. Keep NPO for now. 2. EGD today to exclude PUD. 3. If negative, agree with proceeding with cholecystectomy. 4. Additional recommendations pending results of testing. Supervising Physician Co-Signing Physician Notes Agree with ORLANDO Young as above Abd: Soft, Tender RUQ, ND, +BS Continue current therapy Proceed with EGD History of Present Illness Reason for Consultation: Epigastric pain Requesting Physician: Suzi Baum PA-C Attending Physician: La Emanuel MD History of Present Illness Patient is a pleasant 28 year-old female with a history of asthma, anxiety, and ADHD presenting to the ER early this morning after being awaken from sleep with severe epigastric pain. She states that she felt like "I got punched in the stomach". States the pain was 9/10 in intensity with radiation into the LUQ. On arrival, she did have a gall bladder ultrasound which demonstrated a 1.2 cm nonmobile stone within the gall bladder neck. There was associated mild leukocytosis of 12.95 but normal liver panel. General surgery was consulted and is considering cholecystectomy. GI has been consulted as the patient is apprehensive about undergoing a surgery with the uncertainty that the ultrasound findings are the cause of her symptoms. She states she does have intermittent pyrosis with spicy and fatty foods but has never experienced pain like she developed this morning. Patient occasionally uses NSAIDs and drinks caffeine "too much". No alcohol. She does not use any acid suppressive therapy routinely. No family history of GI pathology. She remains NPO for now. Currently, she rates her pain as 4/10. No nausea or vomiting, fever or chills, diarrhea, cons tipation, melena or hematochezia. Allergies Allergy/AdvReac Type Severity Reaction Status Date / Time No Known Allergies Allergy Verified 09/10/18 03:47 Home Medications Home Medications Medication Instructions Recorded Confirmed Type cholecalciferol (vitamin D3) 1,000 unit PO DAILY 07/14/18 09/10/18 History [Vitamin D3] coQ10 (ubiquinol) 200 mg PO Q2D 07/14/18 09/10/18 History fluoxetine 20 mg PO QAM 07/14/18 09/10/18 History magnesium citrate 200 mg PO Q2D 07/14/18 09/10/18 History melatonin 3 mg PO HS PRN 07/14/18 09/10/18 History multivitamin with minerals 1 tab PO DAILY 07/14/18 09/10/18 History vitamin B complex 1 tab PO DAILY 07/14/18 09/10/18 History amoxicillin-pot clavulanate 1 tab PO BID 10 Days #20 tab 09/10/18 Rx [Augmentin] Patient History Medical History Anxiety (Chronic) Polycystic ovarian syndrome (Chronic) UNSURE ? 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 Surgical History History of tooth extraction Ovarian cyst REMOVED SURGICALLY Family History Grandfather (Maternal) Family history of diabetes mellitus Grandfather (Paternal) Family history of diabetes mellitus Sister Family history of diabetes mellitus Social History Preferred Language: Swedish Communication Ability: Effective Pilot Instructor Required: No Beliefs That Will Affect Care: None Current Living Situation: Spouse Other Information That Helps Us Care for You: No Feels Safe at Home: Yes Safety Concerns: Feels Safe At This Time Smoking Status: Current every day smoker Tobacco Type: cigarettes Cigarettes Per Day: 10 Do You Dip or Chew Tobacco: No Second Hand Exposure: No Tobacco Cessation Education Requested by Patient: No Hx Alcohol Use: No Hx Substance Use: No Review of Systems Review of Systems: All systems reviewed & are unremarkable except as noted in HPI & below Physical Exam Constitutional: WD/WN, vitals as above Eyes: EOM intact bilaterally Neck: normal appearance Respiratory: normal respiratory effort, lungs clear to auscultation Cardiovascular: RRR, no murmur, no edema Gastrointestinal (Abdomen): Inspection/Auscultation: abdomen normal to inspection and normal bowel sounds Percussion/Palpation: + abdomen tender (RUQ) and abdomen soft Musculoskeletal: Gait: normal gait Skin: no rashes, warm and dry Psychiatric: A+Ox3, euthymic affect Results & Data Vital Signs (Past 12 Hours) Vital Signs Temp Pulse Pulse Resp BP BP Pulse Ox 09/10/18 07:45 36.5 C 63 16 117/80 94 09/10/18 07:20 67 16 115/71 94 09/10/18 06:40 67 18 115/71 94 09/10/18 05:54 70 18 130/88 95 09/10/18 04:26 75 18 101/53 L 98 09/10/18 03:12 36.5 C 77 16 148/97 H 98 Pulse Ox 09/10/18 07:45 94 09/10/18 07:20 09/10/18 06:40 09/10/18 05:54 09/10/18 04:26 09/10/18 03:12 Laboratory Results Abnormal lab results 09/10/18 09/10/18 09/10/18 Range/Units 03:25 03:25 Unknown WBC 12.95 H (4.8-10.8) K/uL Immature Gran # (Auto) 0.04 H (0.00-0.02) K/uL Lymph # (Auto) 6.14 H (1.2-3.4) K/uL [place] # (Auto) 0.62 H (0.11-0.59) K/uL Chloride 108 H (98-107) mmol/L Glucose 117 H (70-99) mg/dl Urine Protein 1+ H (Negative) Ur Epithelial Cells 20-30 H (0-5) /lpf
[2018-09-10] MEDS: OXYCODONE HCL IR 5 MG TAB (IMMEDIATE RELEASE) PO PRN ×2 (11:19→20:52)
--- NOTE | 2018-09-10 14:23 | Anesthesiology Consultation ---
Date of Service September 10, 2018 Assessment & Plan (1) Encounter for pre-operative examination: Chart Review Chart Review: Acceptable Risk for Surgery and Patient NOT seen in Pre Admission Testing Consults Requested none History Surgery Operation Date: 09/10/18 08:50 Proposed Procedures p Esophagogastroduodenoscopy Dr Mata - Chapo [place] Case, DO Height/Weight Height: 5 ft 4 in Weight: 99.2 kg Allergies Allergy/AdvReac Type Severity Reaction Status Date / Time No Known Allergies Allergy Verified 09/10/18 03:47 Medications Home Medications Medication Instructions Recorded Confirmed Last Taken cholecalciferol (vitamin D3) 1,000 unit PO DAILY 07/14/18 09/10/18 09/09/18 [Vitamin D3] coQ10 (ubiquinol) 200 mg PO Q2D 07/14/18 09/10/18 09/09/18 fluoxetine 20 mg PO QAM 07/14/18 09/10/18 09/09/18 magnesium citrate 200 mg PO Q2D 07/14/18 09/10/18 09/09/18 melatonin 3 mg PO HS PRN 07/14/18 09/10/18 Unknown multivitamin with minerals 1 tab PO DAILY 07/14/18 09/10/18 09/09/18 vitamin B complex 1 tab PO DAILY 07/14/18 09/10/18 09/09/18 amoxicillin-pot clavulanate 1 tab PO BID 10 Days #20 tab 09/10/18 Unknown [Augmentin] Active Medications Generic Name Dose Route Start Last Admin Trade Name Freq PRN Reason Stop Dose Admin Fluoxetine HCl 20 mg 09/10/18 09:00 09/10/18 09:29 Prozac PO 10/10/18 08:59 20 mg QAM BRITTANEY Administration Hydromorphone HCl 0.5 mg 09/10/18 04:58 09/10/18 05:54 Dilaudid IV 09/24/18 04:57 0.5 mg Q3H PRN Administration Breakthrough Pain Sodium Chloride 1,000 mls @ 100 mls/hr 09/10/18 05:00 09/10/18 14:20 Nss 1000ml IV 10/10/18 04:59 Infused .Q10H BRITTANEY Infusion Ondansetron HCl 4 mg 09/10/18 04:58 09/10/18 06:10 Zofran IV 07/06/19 04:57 4 mg Q4H PRN Administration Nausea And Vomiting Oxycodone HCl 5 mg 09/10/18 04:58 09/10/18 11:19 Roxicodone Immediate Rel PO 09/24/18 04:57 5 mg Q4H PRN Administration MODERATE Pain (Scale 4,5,6) NPO Date Last Intake of Fluids: 09/10/18 Time Last Intake of Fluids: 02:00 Date Last Intake of Solids: 09/09/18 Time Last Intake of Solids: 20:30 Past Medical History Medical History Anxiety (Chronic) Polycystic ovarian syndrome (Chronic) UNSURE ? 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 Past Family History Family History Grandfather (Maternal) Family history of diabetes mellitus Grandfather (Paternal) Family history of diabetes mellitus Sister Family history of diabetes mellitus Past Surgical History Surgical History History of tooth extraction Ovarian cyst REMOVED SURGICALLY Social History Smoking Status: Current every day smoker tobacco type: cigarettes Smoking cigarettes per day: 10 Do You Dip or Chew Tobacco: No Hx Alcohol Use: No Alcohol type: beer and wine alcohol intake frequency: a few times a month Hx Substance Use: No substance use type: does not use Physical Exam Vital Signs Last Vital Signs Temp 36.6 C 09/10/18 13:57 Pulse 63 09/10/18 07:45 Resp 14 09/10/18 13:57 BP 117/64 09/10/18 13:57 Pulse Ox 95 09/10/18 13:57
[2018-09-10] MEDS ORDERED: PROPOFOL IV EMULSION 10 MG/ML 20 ML VIAL IV ONE (14:29)
[2018-09-10] MEDS ORDERED: ONDANSETRON INJ 2 MG/ML 2 ML VIAL ONE (14:29)
[2018-09-10] MEDS ORDERED: MIDAZOLAM HCL 1 MG/ML 2ML VIAL ONE (14:29)
[2018-09-10] MEDS ORDERED: LIDOCAINE HCL 2% 2 ML VIAL/AMP(20MG/ML) INFIL ONE (14:29)
--- NOTE | 2018-09-10 15:11 | GI REPORT ---
Patient Name: Radha Joseph Procedure Date: 09/10/2018 2:50 PM Date of : 1990 Admit Type: Inpatient Age: 28 Gender: Female Attending MD: Chapo Mata DO Procedure: Upper GI endoscopy Providers: Chapo Mata DO Referring MD: La Emanuel Md Indications: Abdominal pain in the right upper quadrant Medicines: Monitored Anesthesia Care Complications: No immediate complications. Estimated Blood Loss: Estimated blood loss: none. Procedure: Pre-Anesthesia Assessment: - Prior to the procedure, a History and Physical was performed, and patient medications and allergies were reviewed. The patient's tolerance of previous anesthesia was also reviewed. The risks and benefits of the procedure and the sedation options and risks were discussed with the patient. All questions were answered, and informed consent was obtained. Prior Anticoagulants: The patient has taken no previous anticoagulant or antiplatelet agents. ASA Grade Assessment: II - A patient with mild systemic disease. After reviewing the risks and benefits, the patient was deemed in satisfactory condition to undergo the procedure. After obtaining informed consent, the endoscope was passed under direct vision. Throughout the procedure, the patient's blood pressure, pulse, and oxygen saturations were monitored continuously. The Endoscope was introduced through the mouth, and advanced to the second part of duodenum. The upper GI endoscopy was accomplished without difficulty. The patient tolerated the procedure well. Findings: The examined esophagus was normal. Localized mild inflammation characterized by erythema was found in the gastric antrum. Biopsies were taken with a cold forceps for histology. The examined duodenum was normal. Impression: - Normal esophagus. - Gastritis. Biopsied. - Normal examined duodenum. Recommendation: - Return patient to [facility] for [facility] care. - Continue present medications. - Await pathology results. - Clear liquid diet. Chapo Mata DO 09/10/2018 3:10:54 PM This report has been signed electronically. Note Initiated On: 09/10/2018 2:50 PM Number of Addenda: 0 I attest to the content of the Intraoperative Record and orders documented therein, exceptions below {[id number]}
--- NOTE | 2018-09-10 15:29 | Anesthesiology Progress Note ---
Date of Service September 10, 2018 Anesthesia Post Procedure Vital Signs Vital Signs: Temp Pulse Pulse Resp BP BP Pulse Ox 09/10/18 15:22 74 16 118/76 95 09/10/18 15:03 63 16 106/55 L 93 09/10/18 13:57 36.6 C 14 117/64 95 09/10/18 07:45 36.5 C 63 16 117/80 94 09/10/18 07:20 67 16 115/71 94 09/10/18 06:40 67 18 115/71 94 09/10/18 05:54 70 18 130/88 95 09/10/18 04:26 75 18 101/53 L 98 09/10/18 03:12 36.5 C 77 16 148/97 H 98 Pulse Ox 09/10/18 15:22 09/10/18 15:03 09/10/18 13:57 09/10/18 07:45 94 09/10/18 07:20 09/10/18 06:40 09/10/18 05:54 09/10/18 04:26 09/10/18 03:12 Pain Intensity Abdomen: Pain Intensity: 5 Transfer of Care Handoff Completed per policy Notes Mental Status: alert / awake / arousable Patient Amnestic to Procedure: Yes Nausea / Vomiting: adequately controlled Pain: adequately controlled Airway Patency, RR, SpO2: stable & adequate BP & HR: stable & adequate Hydration State: stable & adequate Anesthetic Complications: no major complications apparent and Pt Satisfied with anesthetic care
[2018-09-10] MEDS: cefOXitin 2,000 MG in DEXTROSE 5% 50 ML IV SCH ×3 (16:12→23:52)
[2018-09-11] MEDS: SODIUM CHLORIDE 0.9% 1000ML 1,000 ML IV SCH ×2 (04:49→13:10)
[2018-09-11] MEDS: FLUOXETINE HCL 20 MG CAP PO SCH (07:28)
[2018-09-11] MEDS: cefOXitin 2,000 MG in DEXTROSE 5% 50 ML IV SCH (07:29)
--- NOTE | 2018-09-11 07:38 | Anesthesiology Consultation ---
Date of Service September 11, 2018 History Surgery Operation Date: 09/10/18 08:50 Proposed Procedures p Esophagogastroduodenoscopy Dr Mata - Chapo Mata, DO Operation Date: 09/11/18 07:30 Proposed Procedures p Laparoscopic Cholecystectomy - La Emanuel MD Height/Weight Height: 5 ft 4 in Weight: 99.2 kg Allergies Allergy/AdvReac Type Severity Reaction Status Date / Time No Known Allergies Allergy Verified 09/10/18 03:47 Medications Home Medications Medication Instructions Recorded Confirmed Last Taken cholecalciferol (vitamin D3) 1,000 unit PO DAILY 07/14/18 09/10/18 09/09/18 [Vitamin D3] coQ10 (ubiquinol) 200 mg PO Q2D 07/14/18 09/10/18 09/09/18 fluoxetine 20 mg PO QAM 07/14/18 09/10/18 09/09/18 magnesium citrate 200 mg PO Q2D 07/14/18 09/10/18 09/09/18 melatonin 3 mg PO HS PRN 07/14/18 09/10/18 Unknown multivitamin with minerals 1 tab PO DAILY 07/14/18 09/10/18 09/09/18 vitamin B complex 1 tab PO DAILY 07/14/18 09/10/18 09/09/18 amoxicillin-pot clavulanate 1 tab PO BID 10 Days #20 tab 09/10/18 Unknown [Augmentin] Active Medications Generic Name Dose Route Start Last Admin Trade Name Freq PRN Reason Stop Dose Admin Fluoxetine HCl 20 mg 09/10/18 09:00 09/11/18 07:28 Prozac PO 10/10/18 08:59 20 mg QAM BRITTANEY Administration Hydromorphone HCl 0.5 mg 09/10/18 04:58 09/10/18 05:54 Dilaudid IV 09/24/18 04:57 0.5 mg Q3H PRN Administration Breakthrough Pain Sodium Chloride 1,000 mls @ 100 mls/hr 09/10/18 05:00 09/11/18 04:49 Nss 1000ml IV 10/10/18 04:59 100 mls/hr .Q10H BRITTANEY Administration Cefoxitin Sodium 2,000 mg/ 60 mls @ 100 mls/hr 09/10/18 14:00 09/11/18 07:29 Dextrose IV 09/20/18 13:59 100 mls/hr Q6H BRITTANEY Administration Protocol Ondansetron HCl 4 mg 09/10/18 04:58 09/10/18 06:10 Zofran IV 10/10/18 04:57 4 mg Q4H PRN Administration Nausea And Vomiting Oxycodone HCl 5 mg 09/10/18 04:58 09/10/18 20:52 Roxicodone Immediate Rel PO 09/24/18 04:57 5 mg Q4H PRN Administration MODERATE Pain (Scale 4,5,6) NPO Date Last Intake of Fluids: 09/10/18 Time Last Intake of Fluids: 02:00 Date Last Intake of Solids: 09/09/18 Time Last Intake of Solids: 20:30 Past Medical History Medical History Anxiety (Chronic) Polycystic ovarian syndrome (Chronic) UNSURE ? 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 Past Family History Family History Grandfather (Maternal) Family history of diabetes mellitus Grandfather (Paternal) Family history of diabetes mellitus Sister Family history of diabetes mellitus Past Surgical History Surgical History History of tooth extraction Ovarian cyst REMOVED SURGICALLY Social History Smoking Status: Current every day smoker tobacco type: cigarettes Smoking cigarettes per day: 10 Do You Dip or Chew Tobacco: No Hx Alcohol Use: No Alcohol type: beer and wine alcohol intake frequency: a few times a month Hx Substance Use: No substance use type: does not use Physical Exam Vital Signs Last Vital Signs Temp 36.4 C L 09/11/18 07:14 Pulse 59 L 09/11/18 07:14 Resp 20 09/11/18 07:14 BP 119/77 09/11/18 07:14 Pulse Ox 94 09/11/18 07:14 Testing Laboratory Results 09/10/18 03:25 09/10/18 03:25
--- NOTE | 2018-09-11 07:39 | History & Physical Bridge Note ---
Date of Service September 11, 2018 History & Physical Bridge Note I have examined the patient, reviewed the History & Physical and in the interval since the performance of the History & Physical I have noted the following changes of clinical significance: no changes noted
[2018-09-11] MEDS ORDERED: fentaNYL citrate 100 MCG/2 ML VIAL ONE ×2 (07:41→08:59)
[2018-09-11] MEDS ORDERED: MIDAZOLAM HCL 1 MG/ML 2ML VIAL ONE (07:41)
--- NOTE | 2018-09-11 07:41 | Progress Note ---
Date of Service September 11, 2018 Assessment & Plan (1) Symptomatic cholelithiasis: Ms. Joseph is a 28 yo female who presented with RUQ abdominal pain and imaging consistent with symptomatic cholelithiasis, possible early cholecystitis. She also reported an increased use of NSAIDs, reflux, and symptoms worse when lying down. Given this, EGD was performed, showing mild gastritis. - Proceed with laparoscopic, possible open, cholecystectomy, possible intra- operative cholangiogram. Consent obtained (see below). - NPO for OR - IVF - Cefoxitin - Incentive Spirometer - OOB, Ambulate - VTE ppx: TEDS, SCDs - f/u Path results from EGD biopsy Risks, benefits, and alternatives to surgical intervention were discussed with the patient and her . Benefits include improvement in pain, removal of source of infection, almost no risk of recurrent cholecystitis (if the gallbladder is able to be removed in its entirety and subtotal cholecystectomy is not required). Risks of no intervention include worsening infection, recurrent pain, choledocholithiasis, pancreatitis. Risks associated with surgery include but are not limited to pain, scarring, bleeding, infection, hernia, bile leak, injury to bile ducts and other surrounding structures, retained stone, diarrhea, need for additional procedures, heart problems, breathing problems, blood clots, stroke, and . After the above conversation and all questions being answered to apparent satisfaction, the patient decided to proceed with surgery and the patient freely signed consent for laparoscopic, possible open, cholecystectomy, possible intra- operative cholangiogram. Subjective Pt reports a dull RUQ pain. Has not had narcotics. EGD completed yesterday, which showed mild gastritis. Physical Exam Constitutional: no acute distress Respiratory: normal respiratory effort Cardiovascular: Rate/Rhythm: regular rate and regular rhythm Gastrointestinal (Abdomen): soft, nondistended, RUQ tendnerness Results & Data Vital Signs (Past 12 Hours) Vital Signs Temp Pulse Resp BP Pulse Ox 09/11/18 07:14 36.4 C L 59 L 20 119/77 94 09/11/18 03:17 36.3 C L 73 14 103/64 94 09/10/18 23:28 36.4 C L 63 14 118/77 95 Diagnostic Findings (09/10/18) EGD: Findings: The examined esophagus was normal. Localized mild inflammation characterized by erythema was found in the gastric antrum. Biopsies were taken with a cold forceps for histology. The examined duodenum was normal. Impression: - Normal esophagus. - Gastritis. Biopsied. - Normal examined duodenum. Recommendation: - Return patient [facility] for [facility] care. - Continue present medications. - Await pathology results. - Clear liquid diet.
[2018-09-11] MEDS ORDERED: LIDOCAINE HCL 1% 20 ML VIAL ONE (07:49)
[2018-09-11] MEDS ORDERED: BUPIVACAINE 0.5 % 5 MG/1 ML MPF 30ML VIAL ONE (07:49)
--- NOTE | 2018-09-11 07:55 | Anesthesiology Consultation ---
Date of Service September 11, 2018 Assessment & Plan (1) Encounter for pre-operative examination: Chart Review Chart Review: Acceptable Risk for Surgery and Patient NOT seen in Pre Admission Testing Consults Requested none ASA ASA3 History Surgery Operation Date: 09/10/18 08:50 Proposed Procedures p Esophagogastroduodenoscopy Dr Mata - Chapo Mata, DO Operation Date: 09/11/18 07:30 Proposed Procedures p Laparoscopic Cholecystectomy - La Emanuel MD Height/Weight Height: 5 ft 4 in Weight: 99.2 kg Allergies Allergy/AdvReac Type Severity Reaction Status Date / Time No Known Allergies Allergy Verified 09/10/18 03:47 Medications Home Medications Medication Instructions Recorded Confirmed Last Taken cholecalciferol (vitamin D3) 1,000 unit PO DAILY 07/14/18 09/10/18 09/09/18 [Vitamin D3] coQ10 (ubiquinol) 200 mg PO Q2D 07/14/18 09/10/18 09/09/18 fluoxetine 20 mg PO QAM 07/14/18 09/10/18 09/09/18 magnesium citrate 200 mg PO Q2D 07/14/18 09/10/18 09/09/18 melatonin 3 mg PO HS PRN 07/14/18 09/10/18 Unknown multivitamin with minerals 1 tab PO DAILY 07/14/18 09/10/18 09/09/18 vitamin B complex 1 tab PO DAILY 07/14/18 09/10/18 09/09/18 amoxicillin-pot clavulanate 1 tab PO BID 10 Days #20 tab 09/10/18 Unknown [Augmentin] Active Medications Generic Name Dose Route Start Last Admin Trade Name Freq PRN Reason Stop Dose Admin Fluoxetine HCl 20 mg 09/10/18 09:00 09/11/18 07:28 Prozac PO 10/10/18 08:59 20 mg QAM BRITTANEY Administration Hydromorphone HCl 0.5 mg 09/10/18 04:58 09/10/18 05:54 Dilaudid IV 09/24/18 04:57 0.5 mg Q3H PRN Administration Breakthrough Pain Sodium Chloride 1,000 mls @ 100 mls/hr 09/10/18 05:00 09/11/18 04:49 Nss 1000ml IV 10/10/18 04:59 100 mls/hr .Q10H BRITTANEY Administration Cefoxitin Sodium 2,000 mg/ 60 mls @ 100 mls/hr 09/10/18 14:00 09/11/18 07:29 Dextrose IV 09/20/18 13:59 100 mls/hr Q6H BRITTANEY Administration Protocol Ondansetron HCl 4 mg 09/10/18 04:58 09/10/18 06:10 Zofran IV 10/10/18 04:57 4 mg Q4H PRN Administration Nausea And Vomiting Oxycodone HCl 5 mg 09/10/18 04:58 09/10/18 20:52 Roxicodone Immediate Rel PO 09/24/18 04:57 5 mg Q4H PRN Administration MODERATE Pain (Scale 4,5,6) NPO Date Last Intake of Fluids: 09/10/18 Time Last Intake of Fluids: 02:00 Date Last Intake of Solids: 09/09/18 Time Last Intake of Solids: 20:30 Past Medical History Medical History Anxiety (Chronic) Polycystic ovarian syndrome (Chronic) UNSURE ? 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 Past Family History Family History Grandfather (Maternal) Family history of diabetes mellitus Grandfather (Paternal) Family history of diabetes mellitus Sister Family history of diabetes mellitus Past Surgical History Surgical History History of tooth extraction Ovarian cyst REMOVED SURGICALLY Social History Smoking Status: Current every day smoker tobacco type: cigarettes Smoking cigarettes per day: 10 Do You Dip or Chew Tobacco: No Hx Alcohol Use: No Alcohol type: beer and wine alcohol intake frequency: a few times a month Hx Substance Use: No substance use type: does not use Physical Exam Vital Signs Last Vital Signs Temp 36.4 C L 09/11/18 07:14 Pulse 59 L 09/11/18 07:14 Resp 20 09/11/18 07:14 BP 119/77 09/11/18 07:14 Pulse Ox 94 09/11/18 07:14
--- NOTE | 2018-09-11 07:55 | Anesthesiology Progress Note ---
Date of Service September 11, 2018 Anesthesia Post Procedure Vital Signs Vital Signs: Temp Pulse Resp BP Pulse Ox Pulse Ox 09/11/18 07:14 36.4 C L 59 L 20 119/77 94 09/11/18 03:17 36.3 C L 73 14 103/64 94 09/10/18 23:28 36.4 C L 63 14 118/77 95 09/10/18 19:21 36.3 C L 68 18 99/65 L 94 09/10/18 18:03 36.5 C 67 18 99/66 L 95 09/10/18 17:04 36.4 C L 66 18 118/75 96 09/10/18 16:34 36.6 C 62 18 111/72 97 09/10/18 16:20 97 09/10/18 16:05 36.5 C 60 16 104/67 97 09/10/18 15:22 74 16 118/76 95 09/10/18 15:03 63 16 106/55 L 93 09/10/18 13:57 36.6 C 14 117/64 95 Pain Intensity Abdomen: Pain Intensity: 5 Transfer of Care Handoff Completed per policy Notes Mental Status: alert / awake / arousable and participated in evaluation Patient Amnestic to Procedure: Yes Nausea / Vomiting: adequately controlled Pain: adequately controlled Airway Patency, RR, SpO2: stable & adequate BP & HR: stable & adequate Hydration State: stable & adequate Anesthetic Complications: no major complications apparent and Pt Satisfied with anesthetic care
[2018-09-11] MEDS ORDERED: SCOPOLAMINE 1.5 MG TDSY ONE (08:06)
[2018-09-11] MEDS ORDERED: ATROPINE SULFATE 0.1 MG/ML 10ML SYR IV PRN (08:18)
[2018-09-11] MEDS ORDERED: HYDROmorphone INJ 1 MG/ML SYRINGE IV PRN (08:18)
[2018-09-11] MEDS ORDERED: ePHEDrine sulfate 50 MG/ML AMP IV PRN (08:18)
[2018-09-11] MEDS ORDERED: BUPIVACAINE/EPINEPHRINE 0.5% MPF 1:200,000 30 ML VIAL ONE (08:29)
[2018-09-11] MEDS ORDERED: ONDANSETRON INJ 2 MG/ML 2 ML VIAL ONE (08:57)
[2018-09-11] MEDS ORDERED: GLYCOPYRROLATE 0.2 MG/ML VIAL ONE (08:57)
[2018-09-11] MEDS ORDERED: PROPOFOL IV EMULSION 10 MG/ML 20 ML VIAL IV ONE (08:57)
[2018-09-11] MEDS ORDERED: ROCURONIUM BROMIDE 10 MG/ML 5 ML VIAL ONE (08:57)
[2018-09-11] MEDS ORDERED: NEOSTIGMINE METHYLSULFATE 5 MG/5 ML SYR ONE (08:57)
[2018-09-11] MEDS ORDERED: DEXAMETHASONE SOD INJ 4 MG/ML VIAL ONE (08:57)
[2018-09-11] MEDS ORDERED: LIDOCAINE HCL 2% 2 ML VIAL/AMP(20MG/ML) INFIL ONE (08:57)
[2018-09-11] MEDS ORDERED: HYDROmorphone INJ 2 MG/ML SYR/VIAL ONE (09:40)
--- NOTE | 2018-09-11 09:59 | Post Operative Brief Note ---
Immediate Post Op Note v1 Date of Surgery September 11, 2018 Pre & Post Diagnosis Operation Date: 09/11/18 07:30 Pre-Op Diagnosis: CHOLELITHIASIS Post-Op Diagnosis: ACUTE CHOLECYSTITIS Procedure Operation Date: 09/11/18 07:30 Actual Procedures p Laparoscopic Cholecystectomy(Not Applicable) - La Emanuel MD Surgeon La Emanuel MD Liquid Sugar Melter Suzi Baum PA-C Estimated Blood Loss 10 Findings Consistent with Post-Op Diagnosis Fluids 1300 mL Crystalloid Specimens Gallbladder to Pathology Anesthesia Type General Complications none
--- NOTE | 2018-09-11 10:05 | Operative Report ---
Post Operative Report Pre & Post Diagnosis Operation Date: 09/10/18 08:50 Pre-Op Diagnosis: CHOLELITHIASIS Post-Op Diagnosis: Gastritis Operation Date: 09/11/18 07:30 Pre-Op Diagnosis: CHOLELITHIASIS Post-Op Diagnosis: CHOLELITHIASIS Procedure Operation Date: 09/10/18 08:50 Actual Procedures p EGD Biopsy Cytology(Not Applicable) - Chapo Salamanca Case, DO Operation Date: 09/11/18 07:30 Actual Procedures p Laparoscopic Cholecystectomy(Not Applicable) - La Emanuel MD Surgeon La Emanuel MD Wrapper Hand Suzi Baum PA-C Estimated Blood Loss 10 Findings Consistent with Post-Op Diagnosis The gallbladder had edematous, inflammatory surrounding tissue and fluid Fluids 1300 ml Crystalloids Specimens Gallbladder to Pathology Anesthesia Type General Complications none Description of Procedure History and Indications: Pt is a 28 year old female who presented with symptomatic cholelithiasis, possible early acute cholecystitis. A discussion was had with the patient and her about risks, benefits, and alternatives to surgery. Risks included, but are not limited to, injury to the bile ducts, bile leak, abscess, hernia, retained stone, needing to convert to an open procedure, bleeding, infection, MS, stroke, , and need for prolonged intubation. After discussion, and all questions were answered to apparent satisfaction, the patient freely signed consent to proceed with laparoscopic, possible open, cholecystectomy. Description of Procedure: The patient was taken to the operating room and placed in the supine position. Beth-operative antibiotics were administered and SCDs were on and working. General anesthesia was induced. A timeout was held confirming the correct patient, procedure, and necessary equipment. An OG tube was placed. The abdomen was prepped and draped in the usual sterile fashion. An incision was made above the umbilicus. The fascia was elevated and incised. The peritoneum was elevated and incised. Entry into the peritoneum was confirmed visually and no bowel was noted in the vicinity of the incision. The Carl cannula was inserted. The abdomen was insufflated with carbon dioxide. The patient tolerated insufflation well. The laparoscope was inserted and the abdomen inspected. No injuries from initial trocar placement were noted. The patient was placed in reverse Trendelenburg and tilted slightly to the left. Additional trocars were then inserted in the following locations: a 5 mm trocar in the epigastrium and two 5 mm trocars along the right costal margin. The gallbladder had edematous, inflammatory surrounding tissue and fluid. The dome of the gallbladder was grasped with an atraumatic grasper through the lateral port and retracted over the dome of the liver. The infundibulum was also grasped with an atraumatic grasper and retracted laterally. The peritoneum overlying the gallbladder infundibulum was incised and the cystic duct and cystic artery were identified and circumferentially dissected. The critical view of safety was visualized. The cystic duct and cystic artery were then doubly clipped on the staying side and singly on the specimen side, then divided with scissors. The gallbladder was then dissected from its peritoneal attachments by electrocautery. Hemostasis was checked. The gallbladder was placed in an endoscopic retrieval bag. The gallbladder fossa was irrigated. Hemostasis was obtained. There was no evidence of bleeding from the gallbladder fossa or cystic duct artery or leakage of the bile from the cystic duct stump. Secondary trocars were removed under direct visualization. No bleeding was noted. The laparoscope and Carl cannula were withdrawn. The specimen within the endoscopic retrieval bag was removed from the peritoneal cavity and sent to Pathology. A safety pause was held confirming specimens. The fascia of the midline Carl trocar site was closed with two [id number] 0 vicryl sutures and a single interrupted 0 vicryl suture. The skin was closed with subcuticular sutures of 4-0 Monocryl and Dermabond was applied to the incisions. All counts were reported as correct. The OG tube was removed. The patient was extubated and transferred to the recovery room in stable condition. I attest to the content of the Intraoperative Record and any orders documented therein. Any exceptions are noted below.
--- NOTE | 2018-09-11 10:18 | Communication Note ---
Date of Service: September 11, 2018 Attempted to contact the patient's to give an update after surgery. He was not in the surgery waiting room and was unavailable via telephone, I left a voicemail.
[2018-09-11] MEDS ORDERED: PROMETHAZINE HCL 6.25 MG in SODIUM CHLORIDE 0.9% 50 ML IV STA (10:41)
--- NOTE | 2018-09-11 11:51 | Anesthesiology Progress Note ---
Date of Service September 11, 2018 Anesthesia Post Procedure Vital Signs Vital Signs: Temp Pulse Pulse Resp BP BP Pulse Ox 09/11/18 11:30 36.6 C 69 16 139/71 96 09/11/18 11:10 70 21 124/76 94 09/11/18 11:00 70 17 121/79 96 09/11/18 10:50 37 C 69 14 117/66 97 09/11/18 10:40 83 16 125/82 95 09/11/18 10:30 87 21 128/77 95 09/11/18 10:20 88 17 139/75 97 09/11/18 10:12 36.6 C 110 H 15 135/72 92 09/11/18 08:27 36.8 C 61 18 152/89 H 96 09/11/18 07:14 36.4 C L 59 L 20 119/77 94 09/11/18 03:17 36.3 C L 73 14 103/64 94 09/10/18 23:28 36.4 C L 63 14 118/77 95 09/10/18 19:21 36.3 C L 68 18 99/65 L 94 09/10/18 18:03 36.5 C 67 18 99/66 L 95 09/10/18 17:04 36.4 C L 66 18 118/75 96 09/10/18 16:34 36.6 C 62 18 111/72 97 09/10/18 16:20 09/10/18 16:05 36.5 C 60 16 104/67 97 09/10/18 15:22 74 16 118/76 95 09/10/18 15:03 63 16 106/55 L 93 09/10/18 13:57 36.6 C 14 117/64 95 Pulse Ox 09/11/18 11:30 09/11/18 11:10 09/11/18 11:00 09/11/18 10:50 09/11/18 10:40 09/11/18 10:30 09/11/18 10:20 09/11/18 10:12 09/11/18 08:27 09/11/18 07:14 09/11/18 03:17 09/10/18 23:28 09/10/18 19:21 09/10/18 18:03 09/10/18 17:04 09/10/18 16:34 09/10/18 16:20 97 09/10/18 16:05 09/10/18 15:22 09/10/18 15:03 09/10/18 13:57 Pain Intensity Abdomen: Pain Intensity: 5 Transfer of Care Handoff Completed per policy Notes Mental Status: alert / awake / arousable Patient Amnestic to Procedure: Yes Nausea / Vomiting: adequately controlled Pain: adequately controlled Airway Patency, RR, SpO2: stable & adequate BP & HR: stable & adequate Hydration State: stable & adequate Anesthetic Complications: no major complications apparent and Pt Satisfied with anesthetic care
[2018-09-11] MEDS: OXYCODONE HCL IR 5 MG TAB (IMMEDIATE RELEASE) PO PRN (13:26)
[2018-09-11] MEDS: HYDROmorphone INJ 1 MG/ML SYRINGE IV PRN (16:10)
--- NOTE | 2018-09-17 19:57 | Discharge Summary ---
Date of Service September 17, 2018 Admission HPI Per Admitting Provider Radha is a pleasant 28 year-old female who presented to emergency room with complaint of sudden epigastric pain that woke her up at 2 am with radiation to the left upper abdomen. States the pain felt like she was punched in the belly. Pain seemed to go somewhat to her back but denies of pain between her shoulder blades. States she has chronic low back pain that has been persistent that she has been taking NSAIDs more frequently for but not on a daily basis. States she also has noticed increased digestion in the past few weeks, after eating fatty foods and also notices when lying down flat. Has no prior history of gallbladder issues or GERD. Does not take any antacid medications. She states she had some sweating and nausea with the pain and felt like she had to vomit but did not. Denies of any diarrhea, constipation, blood in stools, difficulty urinating, or blood in urine. Denies of any chest pain, shortness of breath, or difficulty breathing. She does have history of PVCs and PACs. Recently just had a Holter monitor which was normal. 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 States her entire family has had gallbladders removed including mother and all three of her siblings. Emergency room work-up included labs which showed leukocytosis of 12K. T. bili, LFTs, lipase wnl. Ultrasound showing 1.2 cm gallstone in neck of gallbladder with pericholecystic fluid however gallbladder wall within normal limits. Admission Exam Per Admitting Provider Constitutional: WD/WN, vitals as above no acute distress and not ill appearing Respiratory: normal respiratory effort, lungs clear to auscultation no respiratory distress Cardiovascular: RRR, no murmur, no edema Gastrointestinal (Abdomen): Inspection/Auscultation: abdomen normal to inspection; abdomen not distended Percussion/Palpation: + abdomen tender (RUQ ) and abdomen soft; no guarding and abdomen not rigid Skin: no rashes, warm and dry Psychiatric: A+Ox3, euthymic affect Principal Diagnosis Acute calculus cholecystitis Gastritis Discharge Exam Constitutional no acute distress Respiratory normal respiratory effort Cardiovascular Rate/Rhythm: regular rate and regular rhythm Discharge Data Allergies Allergy/AdvReac Type Severity Reaction Status Date / Time No Known Allergies Allergy Verified 09/10/18 03:47 Consultations 09/10/18 04:58 ED Decision to Admit Stat 09/10/18 08:11 Consult Gastroenterology Routine Procedures Performed Operation Date: 09/10/18 08:50 Actual Procedures p EGD Biopsy Cytology(Not Applicable) - Chapo Salamanca Case, DO Operation Date: 09/11/18 07:30 Actual Procedures p Laparoscopic Cholecystectomy(Not Applicable) - La Emanuel MD Ordered Studies 09/10/18 03:20 US gallbladder Urgent: FINDINGS: Pancreas is obscured by bowel gas. Hepatomegaly with increased echogenicity of the liver suggestive of hepatic steatosis. No focal hepatic mass lesion, cirrhosis or intrahepatic biliary ductal dilation. There is fatty sparing adjacent to the jasmin hepatis. Equivocal pericholecystic edema. Gallbladder wall is normal in diameter, 1.5 cm. Nonmobile stone about the gallbladder neck measures 1.2 cm. No significant gallbladder distention. Sonographic Moran sign was unable to be assessed secondary to patient receiving recent pain medication. Common bile duct is normal, 3 mm. Imaged right kidney is unremarkable without hydronephrosis. IMPRESSION: 1. Nonmobile cholelithiasis about the gallbladder neck with equivocal pericholecystic edema. No associated gallbladder wall thickening and the sonographic Moran sign was unable to be assessed secondary to patient receiving recent pain medication. These findings could be correlated with nuclear medicine hepatobiliary scan to exclude acute cholecystitis. 2. No biliary ductal dilation. 3. Hepatomegaly with hepatic steatosis. (09/10/18) EGD: Findings: The examined esophagus was normal. Localized mild inflammation characterized by erythema was found in the gastric antrum. Biopsies were taken with a cold forceps for histology. The examined duodenum was normal. Impression: - Normal esophagus. - Gastritis. Biopsied. - Normal examined duodenum. Recommendation: - [facility] patient to [facility] for [facility]. - Continue present medications. - Await pathology results. - Clear liquid diet. Hospital Course (1) Symptomatic cholelithiasis: Ms. Joseph is a 28 yo female who presented with RUQ abdominal pain and imaging consistent with symptomatic cholelithiasis, possible early cholecystitis. She also reported an increased use of NSAIDs, reflux, and symptoms worse when lying down. Given this, EGD was performed on 09/10/18, showing mild gastritis. The following day, 09/11/18, she underwent a laparoscopic cholecystectomy, which revealed acute cholecystitis. She tolerated this procedure well. Her pain was well controlled, she tolerated a diet, was ambulating, and remained hemodynamically stable. She was discharged home on 09/11/18. Total Time Total Time Spent Total Time Spent (In Minutes): 30 minutes Total Time Includes: Examination of the Patient, Discharge Planning, Medication Reconciliation and Communication With Other Providers Discharge Plan Discharge Items Patient Disposition: Home - Self-Care Reason For Visit: CHOLELITHIASIS Discharge Diagnosis: Cholelithiasis (gallstones) Cholecystitis (inflammation of gallbladder) Condition: Good Discharge Goals: Decrease discomfort and Improve function Activity: Per 'Additional Instructions' section Non-emergency contact: Primary Care Provider and Surgeon Call non-emergency contact if: your pain is not controlled, your pain is worsening, your pain is concerning for you, you have a fever, your temperature is above 101, your wound has increased redness and your wound has increased drainage Follow-up/Referrals: Bethany Zhao [Primary Care Provider] - Diet: Regular Addtl Provider Instructions: No heavy lifting over 10-15 pounds for 3-4 weeks No strenuous activity until cleared by surgery No submerging incisions underwater for 2 weeks (no bathing, swimming, or hot tubs) No driving while taking narcotic pain medication or until you are pain free You may shower. Gently allow water to run over incisions and pat dry You have surgical glue on incisions. DO NOT pick off. This will come off on its own. You will be given prescription for narcotic pain medication (Oxycodone) as needed for moderate to severe pain. Take as directed. This medication can cause drowsiness or constipation. Take extra strength Tylenol (650 mg) every 4 hours around the clock for first two days. Try to avoid aspirin/Ibuprofen as you had some irritation of your stomach on EGD. Follow-up in surgical office in 2 weeks, please call office at [phone] to make an appointment. Prescriptions: New oxycodone 5 mg Tablet 5 mg PO Q4H PRN (Reason: pain) Qty: 18 RF: 0 Continued melatonin 3 mg Tablet 3 mg PO HS PRN (Reason: Sleep) RF: 0 fluoxetine 20 mg Tablet 20 mg PO QAM RF: 0 vitamin B complex Tablet 1 tab PO DAILY RF: 0 multivitamin with minerals Tablet 1 tab PO DAILY RF: 0 cholecalciferol (vitamin D3) [Vitamin D3] 1,000 unit Tablet 1,000 unit PO DAILY RF: 0 coQ10 (ubiquinol) 200 mg Capsule 200 mg PO Q2D RF: 0 magnesium citrate 100 mg Tablet 200 mg PO Q2D RF: 0 Stand-Alone [facility] Work[facility]School Release (Inpt) Discharge Orders: Discharge Order (Routine); Ordered 09/11/18 Ordered By: Suzi Baum Admission Data Admit Date/Time: 09/10/18 04:59 Attending Provider: La Emanuel Admit Provider: La Emanuel Primary Care Provider: Bethany Zhao Other Providers: Chapo Mata Service: Surgical Services Other Interventions: Discharge Summary Assessment (RN) Last Done: 09/11/18 16:22 Pending Studies at Discharge: Yes (Gallbladder pathology, will be reviewed at follow-up visit) DC Date/Time DO NOT enter until pt leaves facility: 09/11/18 17:45
== END 2018-09-11 17:45 | disposition home or self-care (01) | DRG 419 ==
LOC: ED 03:08 → 3N 03:08 → OBSVTOIN 04:59 → 3N 07:28